=== PATIENT | male | born 1930 | race Caucasian/White ===

== ENCOUNTER 2017-05-28 03:31 | Outpatient (CLI) | payer MEDICARE ==
[~2017-05-28 03:31] MED LIST: ATOR10TA87 PO; COU5T PO; CYA500T PO; DET2LAC PO; DIGO250T PO; DILT240C PO; FOLI-43 PO; FURO-149 PO; GLIP5TAB13 PO; HYDR12.5 PO; HYT1T PO; IRBE75TA30 PO; LANS30CA37 PO; MULT-785 PO; NIAC500T5 PO; SERT25TA PO; VITC500T PO; [UNRECOGNIZED DRUG - CODE] SQ; [UNRECOGNIZED DRUG - OTHER] NS
== END 2017-05-28 23:59 | disposition home or self-care (01) ==
LOC: DIABETIC 03:31
PROVIDERS: ATTEND Specialist
DX: E11.9 Type 2 diabetes mellitus without complications (principal); F17.200 Nicotine dependence, unspecified, uncomplicated; I11.0 Hypertensive heart disease with heart failure; I50.9 Heart failure, unspecified
CPT/HCPCS: G0108

== ENCOUNTER 2018-01-18 15:12 | Inpatient (IN) | payer MEDICARE, OTHER ==
[~2018-01-18] VITALS: Ht 167.6 cm; Wt 83.0 kg
[~2018-01-18 15:12] MED LIST changes: +COU4T PO; -COU5T PO; -DIGO250T PO; -FOLI-43 PO; +FOLI1TAB16 PO; -FURO-149 PO; +FURO-150 PO; +GLIP2.5T3 PO; -GLIP5TAB13 PO; -HYDR12.5 PO; -LANS30CA37 PO; +METO50TA7 PO; -MULT-785 PO; -SERT25TA PO; +SERT50TA PO; +[UNRECOGNIZED DRUG - CODE] IM; -[UNRECOGNIZED DRUG - CODE] SQ
[2018-01-18 15:33] LABS: BASOPHILS % (AUTO) 0 % (0-1); EOSINOPHILS % (AUTO) 0.2 % (0-6); HEMATOCRIT 30.4 % (42.0-52.0); LYMPHOCYTES # (AUTO) 0.2 X10'3 (1.1-4.8); LYMPHOCYTES % (AUTO) 5.4 % (21-51); MEAN CORPUSCULAR HEMOGLOBIN 31.4 PG (27.0-31.0); MEAN CORPUSCULAR VOLUME 95.4 FL (78-98); MEAN PLATELET VOLUME 8.4 FL (7.4-10.4); MONOCYTES # (AUTO) 0.2 X10'3 (0-0.9); MONOCYTES % (AUTO) 4.5 % (2-12); NEUTROPHILS # (AUTO) 3.8 X10'3 (1.8-7.7); NEUTROPHILS % (AUTO) 89.9 % (42-75); PLATELET COUNT 54 X10'3 (140-440); RED BLOOD COUNT 3.18 X10'6 (4.70-6.10); RED CELL DISTRIBUTION WIDTH 16.3 % (11.5-14.5); WHITE BLOOD COUNT 4.2 X10'3 (4.5-11.0)
[2018-01-18 15:42] LABS: INR 2.9 INR; PARTIAL THROMBOPLASTIN TIME 38 SECONDS (22-32)
[2018-01-18 15:47] LABS: ALANINE AMINOTRANSFERASE 32 U/L (12-78); ALBUMIN 2.8 G/DL (3.4-5.0); ALKALINE PHOSPHATASE 104 IU/L (46-116); ANION GAP 11 (8-16); ASPARTATE AMINO TRANSFERASE 30 U/L (10-37); BILIRUBIN,TOTAL 0.8 MG/DL (0.1-1.0); BLOOD UREA NITROGEN 30 MG/DL (7-18); BUN/CREATININE RATIO 18.3 (5.4-32.0); CALCIUM 8.6 MG/DL (8.5-10.1); CHLORIDE 95 MMOL/L (99-107); CREATININE 1.64 MG/DL (0.60-1.10); GLUCOSE 214 MG/DL (70-104); POTASSIUM 4.5 MMOL/L (3.5-5.1); SODIUM 129 MMOL/L (135-145); TOTAL CARBON DIOXIDE 23.5 MMOL/L (24-32); TOTAL PROTEIN 5.7 G/DL (6.4-8.2); eGFR 40 ML/MIN
[2018-01-18 15:53] LABS: ANISOCYTOSIS 1+; PLATELET ESTIMATE DECREASED; TOTAL CELLS COUNTED 100
[2018-01-18 15:54] LABS: POLYCHROMASIA FEW; TOXIC GRANULATION 1+
[2018-01-18 15:55] LABS: ACANTHOCYTES 1+; ELLIPTOCYTES 1+; SCHISTOCYTES FEW
[2018-01-18] MEDS ORDERED: magnesium hydroxide 30ml (MOM) UD suspension PO PRN (16:25)
[2018-01-18] MEDS ORDERED: acetaminophen 325mg tablet PO PRN (16:25)
[2018-01-18] MEDS ORDERED: ondansetron/PF 4mg/2ml inj IV PRN (16:25)
[2018-01-18] MEDS ORDERED: mag hydrox/Alum hydrox/simeth 30ml oral suspension PO PRN (16:25)
[2018-01-18] MEDS: levoFLOXACIN-Levaquin 500mg/D5 100 ML IV SCH (17:33)
[2018-01-18] MEDS ORDERED: phytonadione inj. 5 MG in normal saline 100ml IV soln 99.5 ML IV ONE (17:45)
[2018-01-18] MEDS ORDERED: morphine 10mg/ml inj. IV ONE (18:40)
[2018-01-18 19:00] VITALS: BP 105/62
[2018-01-18 19:24] LABS: CLARITY,URINE CLEAR (Clear); COLOR,URINE YELLOW (Yellow); GLUCOSE, URINE NEGATIVE (Neg); KETONES,URINE TRACE mg/dl (Neg); LEUKOCYTE ESTERASE ,URINE NEGATIVE (Neg); NITRITES, URINE NEGATIVE (Neg); OCCULT BLOOD,URINE NEGATIVE (Neg); PH,URINE 5.5 (4.8-8.0); PROTEIN,URINE NEGATIVE (Neg); UROBILINOGEN,URINE 0.2 E.U/dL (0.2-1.0)
[2018-01-18 19:27] LABS: UA COLLECTION TYPE FOLEY CATH
[2018-01-18 20:00] VITALS: BP 107/62
[2018-01-18] MEDS ORDERED: ipratropium/albuterol 3ml nebule NEB PRN (20:00)
[2018-01-18] MEDS ORDERED: glucagon, human recombinant 1mg kit SUBCUT PRN (20:15)
[2018-01-18] MEDS ORDERED: dextrose ORAL solution 15 GM/59 ML bottle PO PRN ×2 (20:15)
[2018-01-18] MEDS ORDERED: dextrose 50%-water 50ml dispensing syringe IV PRN ×2 (20:15)
[2018-01-18] MEDS ORDERED: MESSAGE TO PHARMACY PO ONE (20:15)
[2018-01-18 21:00] VITALS: BP 102/61
[2018-01-18] MEDS: Terazosin 1mg capsule PO SCH (21:00)
[2018-01-18] MEDS: insulin glargine (Lantus) pen - multi-dose SQ SCH (21:00)
[2018-01-18] MEDS: oxybutynin 5mg tablet PO SCH (21:00)
[2018-01-18] MEDS: niacin 500mg ER (Niaspan) tablet PO SCH (21:41)
[2018-01-18] MEDS: temazepam 15mg capsule PO PRN (21:41)
[2018-01-18] MEDS: atorvastatin 10mg tablet PO SCH (21:42)
[2018-01-18 22:00] VITALS: BP 90/57
[2018-01-18 23:00] VITALS: BP 93/56
[2018-01-19] VITALS (29 sets, daily range): BP systolic 81–138; BP diastolic 49–84
[2018-01-19 05:11] LABS: INR 1.9 INR; PARTIAL THROMBOPLASTIN TIME 37 SECONDS (22-32); PROTHROMBIN TIME 19.4 SECONDS (9.0-12.0)
[2018-01-19 05:14] LABS: BASOPHILS % (AUTO) 0.7 % (0-1); EOSINOPHILS % (AUTO) 1.1 % (0-6); HEMATOCRIT 27.5 % (42.0-52.0); HEMOGLOBIN 9.2 g/dl (14.0-17.9); LYMPHOCYTES # (AUTO) 0.4 X10'3 (1.1-4.8); LYMPHOCYTES % (AUTO) 9.7 % (21-51); MEAN CORPUSCULAR HEMOGLOBIN 31.5 PG (27.0-31.0); MEAN CORPUSCULAR HGB CONC 33.5 % (33.0-36.5); MEAN CORPUSCULAR VOLUME 94.2 FL (78-98); MEAN PLATELET VOLUME 7.9 FL (7.4-10.4); MONOCYTES # (AUTO) 0.3 X10'3 (0-0.9); MONOCYTES % (AUTO) 8.3 % (2-12); NEUTROPHILS # (AUTO) 3.2 X10'3 (1.8-7.7); NEUTROPHILS % (AUTO) 80.2 % (42-75); RED BLOOD COUNT 2.92 X10'6 (4.70-6.10); RED CELL DISTRIBUTION WIDTH 16.3 % (11.5-14.5); WHITE BLOOD COUNT 3.9 X10'3 (4.5-11.0)
[2018-01-19 05:19] LABS: ALANINE AMINOTRANSFERASE 27 U/L (12-78); ALBUMIN 2.5 G/DL (3.4-5.0); ALBUMIN/GLOBULIN RATIO 0.9 (1.1-1.5); ALKALINE PHOSPHATASE 89 IU/L (46-116); ANION GAP 8 (8-16); ASPARTATE AMINO TRANSFERASE 25 U/L (10-37); BILIRUBIN,TOTAL 0.8 MG/DL (0.1-1.0); BLOOD UREA NITROGEN 29 MG/DL (7-18); BUN/CREATININE RATIO 18.8 (5.4-32.0); CALCIUM 8.5 MG/DL (8.5-10.1); CHLORIDE 98 MMOL/L (99-107); CREATININE 1.54 MG/DL (0.60-1.10); GLUCOSE 68 MG/DL (70-104); POTASSIUM 4.1 MMOL/L (3.5-5.1); SODIUM 131 MMOL/L (135-145); TOTAL CARBON DIOXIDE 25.3 MMOL/L (24-32); TOTAL PROTEIN 5.2 G/DL (6.4-8.2); eGFR 43 ML/MIN
[2018-01-19 05:26] LABS: PLATELET COUNT 43 X10'3 (140-440)
[2018-01-19 05:47] LABS: HEMOGLOBIN A1C 6.3 % (4.5-6.2)
[2018-01-19] MEDS ORDERED: morphine 2 MG/ML inj. syringe IV ONE (07:05)
[2018-01-19] MEDS: furosemide 20 MG/2 ML vial IV SCH ×3 (08:14→16:00)
[2018-01-19] MEDS: diltiazem CD 120mg capsule (once-daily) PO SCH (08:14)
[2018-01-19] MEDS: levoFLOXACIN-Levaquin 500mg/D5 100 ML IV SCH (08:14)
[2018-01-19] MEDS: cyanocobalamin 500mcg tablet PO SCH (08:14)
[2018-01-19] MEDS: losartan 25mg tablet PO SCH (08:15)
[2018-01-19] MEDS: lactobacillus rhamnosus 10,000 MMU CELLS/CAPSULE PO SCH ×2 (08:15→20:22)
[2018-01-19] MEDS: metoprolol succinate 25mg (24-HOUR) SR. Tablet PO SCH (08:15)
[2018-01-19] MEDS: sertraline 50mg tablet PO SCH (08:15)
[2018-01-19] MEDS: ascorbic acid 500mg tablet PO SCH ×2 (08:15→20:22)
[2018-01-19] MEDS: folic acid 1mg tablet PO SCH (08:16)
[2018-01-19] MEDS: oxybutynin 5mg tablet PO SCH ×2 (08:16→20:23)
[2018-01-19 08:19] LABS: BASOPHILS % (AUTO) 0 % (0-1); EOSINOPHILS # (AUTO) 0.1 X10'3 (0-0.9); EOSINOPHILS % (AUTO) 1.4 % (0-6); HEMATOCRIT 28.4 % (42.0-52.0); HEMOGLOBIN 9.5 g/dl (14.0-17.9); LYMPHOCYTES # (AUTO) 0.3 X10'3 (1.1-4.8); LYMPHOCYTES % (AUTO) 7.7 % (21-51); MEAN CORPUSCULAR HEMOGLOBIN 31.6 PG (27.0-31.0); MEAN CORPUSCULAR HGB CONC 33.6 % (33.0-36.5); MEAN CORPUSCULAR VOLUME 94.2 FL (78-98); MEAN PLATELET VOLUME 8.7 FL (7.4-10.4); MONOCYTES # (AUTO) 0.4 X10'3 (0-0.9); MONOCYTES % (AUTO) 9.6 % (2-12); NEUTROPHILS # (AUTO) 3.1 X10'3 (1.8-7.7); NEUTROPHILS % (AUTO) 81.3 % (42-75); PLATELET COUNT 65 X10'3 (140-440); RED BLOOD COUNT 3.01 X10'6 (4.70-6.10); RED CELL DISTRIBUTION WIDTH 16.2 % (11.5-14.5); WHITE BLOOD COUNT 3.9 X10'3 (4.5-11.0)
[2018-01-19] MEDS ORDERED: LIDOcaine 1%/PF 5ML 10 MG/ML VIAL ONE (08:50)
[2018-01-19] MEDS ORDERED: LIDOcaine 1%/PF 5ML 10 MG/ML VIAL SQ ONE (09:20)
[2018-01-19] MEDS ORDERED: fentaNYL/PF 50MCG/1 ML 2ML syringe ONE (09:27)
[2018-01-19] MEDS ORDERED: fentaNYL/PF 50MCG/1 ML 2ML syringe IV PRN (09:30)
[2018-01-19] MEDS ORDERED: normal saline 1000ml 1,000 ML IV SCH (12:20)
[2018-01-19 13:24] LABS: AMYLASE,BODY FLUID 53 U/L; GLUCOSE,BODY FLUID 88 MG/DL; LDH,BODY FLUID 155 U/L
[2018-01-19 13:50] LABS: BFAPPEAR BLOODY
[2018-01-19 13:51] LABS: BF RBC COUNT 34500 /CU MM; BF WBC COUNT 3620 /CU MM (0-1000); BFCOLOR RED; BFVOLUME 60 ML; EOSINOPHILS,BODY FLUID 1 %; LYMPHOCYTES,BODY FLUID 8 %; MONOCYTES,BODY FLUID 1 %; NEUTROPHILS,BODY FLUID 90 %
[2018-01-19 13:54] LABS: BF MESOTHELIAL CELLS FEW
[2018-01-19 13:55] LABS: OTHER CELLS,BODY FLUID MACROPHAGES
[2018-01-19] MEDS: insulin Lispro (HumaLOG) vial - multi-dose SQ SCH (14:04)
[2018-01-19] MEDS: temazepam 15mg capsule PO PRN (20:22)
[2018-01-19] MEDS: atorvastatin 10mg tablet PO SCH (20:22)
[2018-01-19] MEDS: Terazosin 1mg capsule PO SCH (20:23)
[2018-01-19] MEDS: niacin 500mg ER (Niaspan) tablet PO SCH (20:24)
[2018-01-19] MEDS: insulin glargine (Lantus) pen - multi-dose SQ SCH (21:00)
[2018-01-20] VITALS (24 sets, daily range): BP systolic 87–120; BP diastolic 50–73
[2018-01-20] MEDS ORDERED: benzocaine/menthol oral lozeng 1 EACH BOX MM PRN
[2018-01-20 04:38] LABS: BASOPHILS % (AUTO) 0.2 % (0-1); EOSINOPHILS # (AUTO) 0.1 X10'3 (0-0.9); EOSINOPHILS % (AUTO) 3.7 % (0-6); HEMATOCRIT 26.6 % (42.0-52.0); HEMOGLOBIN 8.8 g/dl (14.0-17.9); LYMPHOCYTES # (AUTO) 0.4 X10'3 (1.1-4.8); MEAN CORPUSCULAR HEMOGLOBIN 31.3 PG (27.0-31.0); MEAN CORPUSCULAR HGB CONC 33.1 % (33.0-36.5); MEAN CORPUSCULAR VOLUME 94.3 FL (78-98); MEAN PLATELET VOLUME 8.1 FL (7.4-10.4); MONOCYTES # (AUTO) 0.3 X10'3 (0-0.9); NEUTROPHILS # (AUTO) 2.9 X10'3 (1.8-7.7); NEUTROPHILS % (AUTO) 77.1 % (42-75); PLATELET COUNT 66 X10'3 (140-440); RED BLOOD COUNT 2.82 X10'6 (4.70-6.10); RED CELL DISTRIBUTION WIDTH 17.1 % (11.5-14.5); WHITE BLOOD COUNT 3.8 X10'3 (4.5-11.0)
[2018-01-20 04:50] LABS: INR 1.5 INR; PARTIAL THROMBOPLASTIN TIME 37 SECONDS (22-32); PROTHROMBIN TIME 15.2 SECONDS (9.0-12.0)
[2018-01-20 04:53] LABS: ALANINE AMINOTRANSFERASE 21 U/L (12-78); ALBUMIN 2.2 G/DL (3.4-5.0); ALBUMIN/GLOBULIN RATIO 0.8 (1.1-1.5); ALKALINE PHOSPHATASE 82 IU/L (46-116); ANION GAP 4 (8-16); ASPARTATE AMINO TRANSFERASE 20 U/L (10-37); BILIRUBIN,TOTAL 0.8 MG/DL (0.1-1.0); BLOOD UREA NITROGEN 32 MG/DL (7-18); BUN/CREATININE RATIO 18.9 (5.4-32.0); CALCIUM 8.1 MG/DL (8.5-10.1); CHLORIDE 98 MMOL/L (99-107); CREATININE 1.69 MG/DL (0.60-1.10); GLUCOSE 116 MG/DL (70-104); POTASSIUM 4.2 MMOL/L (3.5-5.1); SODIUM 127 MMOL/L (135-145); TOTAL CARBON DIOXIDE 24.9 MMOL/L (24-32); TOTAL PROTEIN 4.8 G/DL (6.4-8.2); eGFR 39 ML/MIN
[2018-01-20] MEDS: cyanocobalamin 500mcg tablet PO SCH (07:37)
[2018-01-20] MEDS: furosemide 20 MG/2 ML vial IV SCH ×4 (07:37→23:56)
[2018-01-20] MEDS: levoFLOXACIN-Levaquin 500mg/D5 100 ML IV SCH (07:37)
[2018-01-20] MEDS: metoprolol succinate 25mg (24-HOUR) SR. Tablet PO SCH (07:38)
[2018-01-20] MEDS: diltiazem CD 120mg capsule (once-daily) PO SCH (07:38)
[2018-01-20] MEDS: folic acid 1mg tablet PO SCH (07:38)
[2018-01-20] MEDS: ascorbic acid 500mg tablet PO SCH (07:38)
[2018-01-20] MEDS: oxybutynin 5mg tablet PO SCH ×2 (07:38→20:43)
[2018-01-20] MEDS: sertraline 50mg tablet PO SCH (07:38)
[2018-01-20] MEDS: lactobacillus rhamnosus 10,000 MMU CELLS/CAPSULE PO SCH ×2 (07:38→20:42)
[2018-01-20] MEDS: losartan 25mg tablet PO SCH (08:00)
[2018-01-20] MEDS: insulin Lispro (HumaLOG) vial - multi-dose SQ SCH (13:32)
[2018-01-20] MEDS: Terazosin 1mg capsule PO SCH (20:42)
[2018-01-20] MEDS: niacin 500mg ER (Niaspan) tablet PO SCH (20:43)
[2018-01-20] MEDS: atorvastatin 10mg tablet PO SCH (20:43)
[2018-01-20] MEDS: insulin glargine (Lantus) pen - multi-dose SQ SCH (20:55)
[2018-01-21] VITALS (13 sets, daily range): BP systolic 87–136; BP diastolic 47–78
[2018-01-21] MEDS: temazepam 15mg capsule PO PRN ×2 (01:03→20:09)
[2018-01-21 05:16] LABS: BASOPHILS % (AUTO) 0.2 % (0-1); EOSINOPHILS # (AUTO) 0.2 X10'3 (0-0.9); EOSINOPHILS % (AUTO) 3.9 % (0-6); HEMATOCRIT 27.5 % (42.0-52.0); HEMOGLOBIN 9.1 g/dl (14.0-17.9); LYMPHOCYTES # (AUTO) 0.5 X10'3 (1.1-4.8); LYMPHOCYTES % (AUTO) 13.3 % (21-51); MEAN CORPUSCULAR HEMOGLOBIN 31.1 PG (27.0-31.0); MEAN CORPUSCULAR HGB CONC 33.1 % (33.0-36.5); MEAN CORPUSCULAR VOLUME 93.9 FL (78-98); MEAN PLATELET VOLUME 8.8 FL (7.4-10.4); MONOCYTES # (AUTO) 0.3 X10'3 (0-0.9); MONOCYTES % (AUTO) 6.6 % (2-12); PLATELET COUNT 73 X10'3 (140-440); RED BLOOD COUNT 2.93 X10'6 (4.70-6.10); RED CELL DISTRIBUTION WIDTH 17.5 % (11.5-14.5); WHITE BLOOD COUNT 3.9 X10'3 (4.5-11.0)
[2018-01-21 05:20] LABS: INR 1.5 INR; PROTHROMBIN TIME 15.2 SECONDS (9.0-12.0)
[2018-01-21 05:36] LABS: ALANINE AMINOTRANSFERASE 17 U/L (12-78); ALBUMIN 2.3 G/DL (3.4-5.0); ALBUMIN/GLOBULIN RATIO 0.9 (1.1-1.5); ALKALINE PHOSPHATASE 89 IU/L (46-116); ANION GAP 9 (8-16); ASPARTATE AMINO TRANSFERASE 21 U/L (10-37); BILIRUBIN,TOTAL 0.9 MG/DL (0.1-1.0); BLOOD UREA NITROGEN 32 MG/DL (7-18); BUN/CREATININE RATIO 18.7 (5.4-32.0); CALCIUM 8.4 MG/DL (8.5-10.1); CHLORIDE 97 MMOL/L (99-107); CREATININE 1.71 MG/DL (0.60-1.10); GLUCOSE 112 MG/DL (70-104); POTASSIUM 3.8 MMOL/L (3.5-5.1); SODIUM 130 MMOL/L (135-145); TOTAL CARBON DIOXIDE 23.6 MMOL/L (24-32); eGFR 38 ML/MIN
[2018-01-21] MEDS: lactobacillus rhamnosus 10,000 MMU CELLS/CAPSULE PO SCH ×2 (08:43→20:09)
[2018-01-21] MEDS: cyanocobalamin 500mcg tablet PO SCH (08:43)
[2018-01-21] MEDS: sertraline 50mg tablet PO SCH (08:44)
[2018-01-21] MEDS: ascorbic acid 500mg tablet PO SCH (08:44)
[2018-01-21] MEDS: folic acid 1mg tablet PO SCH (08:44)
[2018-01-21] MEDS: oxybutynin 5mg tablet PO SCH ×2 (08:44→20:11)
[2018-01-21] MEDS: losartan 25mg tablet PO SCH (08:45)
[2018-01-21] MEDS: diltiazem CD 120mg capsule (once-daily) PO SCH (08:45)
[2018-01-21] MEDS: levoFLOXACIN-Levaquin 500mg/D5 100 ML IV SCH (08:46)
[2018-01-21] MEDS: furosemide 20MG tablet PO SCH (09:35)
[2018-01-21] MEDS: metoprolol succinate 25mg (24-HOUR) SR. Tablet PO SCH (09:35)
[2018-01-21] MEDS: niacin 500mg ER (Niaspan) tablet PO SCH (20:09)
[2018-01-21] MEDS: atorvastatin 10mg tablet PO SCH (20:11)
[2018-01-21] MEDS: Terazosin 1mg capsule PO SCH (20:12)
[2018-01-21] MEDS: insulin glargine (Lantus) pen - multi-dose SQ SCH (20:32)
[2018-01-21] MEDS ORDERED: warfarin 4mg tablet PO ONE (21:00)
[2018-01-22 03:00] VITALS: BP 105/54
[2018-01-22 05:34] LABS: BASOPHILS % (AUTO) 0.1 % (0-1); EOSINOPHILS # (AUTO) 0.2 X10'3 (0-0.9); EOSINOPHILS % (AUTO) 3.9 % (0-6); HEMATOCRIT 26.7 % (42.0-52.0); HEMOGLOBIN 8.9 g/dl (14.0-17.9); LYMPHOCYTES # (AUTO) 0.4 X10'3 (1.1-4.8); LYMPHOCYTES % (AUTO) 10.3 % (21-51); MEAN CORPUSCULAR HEMOGLOBIN 30.9 PG (27.0-31.0); MEAN CORPUSCULAR HGB CONC 33.3 % (33.0-36.5); MEAN CORPUSCULAR VOLUME 92.9 FL (78-98); MEAN PLATELET VOLUME 8.7 FL (7.4-10.4); MONOCYTES # (AUTO) 0.3 X10'3 (0-0.9); MONOCYTES % (AUTO) 7.4 % (2-12); NEUTROPHILS # (AUTO) 3.4 X10'3 (1.8-7.7); NEUTROPHILS % (AUTO) 78.3 % (42-75); PLATELET COUNT 65 X10'3 (140-440); RED BLOOD COUNT 2.87 X10'6 (4.70-6.10); WHITE BLOOD COUNT 4.4 X10'3 (4.5-11.0)
[2018-01-22 05:44] LABS: INR 1.5 INR; PROTHROMBIN TIME 15.1 SECONDS (9.0-12.0)
[2018-01-22 05:46] LABS: ALANINE AMINOTRANSFERASE 23 U/L (12-78); ALBUMIN 2.2 G/DL (3.4-5.0); ALBUMIN/GLOBULIN RATIO 0.8 (1.1-1.5); ALKALINE PHOSPHATASE 88 IU/L (46-116); ANION GAP 9 (8-16); ASPARTATE AMINO TRANSFERASE 21 U/L (10-37); BILIRUBIN,TOTAL 0.7 MG/DL (0.1-1.0); BLOOD UREA NITROGEN 38 MG/DL (7-18); BUN/CREATININE RATIO 22.9 (5.4-32.0); CALCIUM 8.4 MG/DL (8.5-10.1); CHLORIDE 97 MMOL/L (99-107); CREATININE 1.66 MG/DL (0.60-1.10); GLUCOSE 102 MG/DL (70-104); POTASSIUM 3.8 MMOL/L (3.5-5.1); SODIUM 129 MMOL/L (135-145); TOTAL CARBON DIOXIDE 22.7 MMOL/L (24-32); TOTAL PROTEIN 4.9 G/DL (6.4-8.2); eGFR 39 ML/MIN
[2018-01-22 06:00] VITALS: BP 97/57
[2018-01-22 07:43] LABS: ANISOCYTOSIS 1+; ELLIPTOCYTES FEW; PLATELET ESTIMATE DECREASED; POIKILOCYTOSIS 1+; TEAR DROP CELLS FEW
[2018-01-22 07:47] LABS: ACANTHOCYTES FEW
[2018-01-22 07:48] LABS: SCHISTOCYTES FEW
[2018-01-22 07:49] LABS: SPHEROCYTES FEW
[2018-01-22] MEDS: metoprolol succinate 25mg (24-HOUR) SR. Tablet PO SCH (08:00)
[2018-01-22] MEDS: losartan 25mg tablet PO SCH (08:00)
[2018-01-22] MEDS: furosemide 20MG tablet PO SCH (08:00)
[2018-01-22] MEDS: diltiazem CD 120mg capsule (once-daily) PO SCH (09:04)
[2018-01-22] MEDS: folic acid 1mg tablet PO SCH (09:05)
[2018-01-22] MEDS: oxybutynin 5mg tablet PO SCH ×2 (09:05→20:37)
[2018-01-22] MEDS: ascorbic acid 500mg tablet PO SCH (09:05)
[2018-01-22] MEDS: lactobacillus rhamnosus 10,000 MMU CELLS/CAPSULE PO SCH ×2 (09:05→20:37)
[2018-01-22] MEDS: sertraline 50mg tablet PO SCH (09:05)
[2018-01-22] MEDS: cyanocobalamin 500mcg tablet PO SCH (09:05)
[2018-01-22 11:00] VITALS: BP 112/58
[2018-01-22 15:00] VITALS: BP 120/59
[2018-01-22 19:00] VITALS: BP 158/84
[2018-01-22] MEDS: atorvastatin 10mg tablet PO SCH (20:35)
[2018-01-22] MEDS: terazosin 5mg capsule PO SCH (20:35)
[2018-01-22] MEDS: niacin 500mg ER (Niaspan) tablet PO SCH (20:37)
[2018-01-22] MEDS: temazepam 15mg capsule PO PRN (20:37)
[2018-01-22] MEDS: insulin glargine (Lantus) pen - multi-dose SQ SCH (20:45)
[2018-01-22] MEDS ORDERED: warfarin 4mg tablet PO ONE (21:00)
[2018-01-22 23:00] VITALS: BP 125/63
[2018-01-23 03:00] VITALS: BP 126/73
[2018-01-23 05:36] LABS: BASOPHILS % (AUTO) 0.1 % (0-1); EOSINOPHILS # (AUTO) 0.1 X10'3 (0-0.9); EOSINOPHILS % (AUTO) 2.9 % (0-6); HEMATOCRIT 26.6 % (42.0-52.0); HEMOGLOBIN 8.9 g/dl (14.0-17.9); LYMPHOCYTES # (AUTO) 0.4 X10'3 (1.1-4.8); LYMPHOCYTES % (AUTO) 8.1 % (21-51); MEAN CORPUSCULAR HEMOGLOBIN 30.9 PG (27.0-31.0); MEAN CORPUSCULAR HGB CONC 33.3 % (33.0-36.5); MEAN CORPUSCULAR VOLUME 92.9 FL (78-98); MEAN PLATELET VOLUME 8.2 FL (7.4-10.4); MONOCYTES # (AUTO) 0.3 X10'3 (0-0.9); MONOCYTES % (AUTO) 6.5 % (2-12); NEUTROPHILS # (AUTO) 4.3 X10'3 (1.8-7.7); NEUTROPHILS % (AUTO) 82.4 % (42-75); PLATELET COUNT 62 X10'3 (140-440); RED BLOOD COUNT 2.87 X10'6 (4.70-6.10); RED CELL DISTRIBUTION WIDTH 17.4 % (11.5-14.5); WHITE BLOOD COUNT 5.2 X10'3 (4.5-11.0)
[2018-01-23 05:50] LABS: INR 1.6 INR; PROTHROMBIN TIME 16.4 SECONDS (9.0-12.0)
[2018-01-23 06:01] LABS: ALANINE AMINOTRANSFERASE 23 U/L (12-78); ALBUMIN 2.3 G/DL (3.4-5.0); ALBUMIN/GLOBULIN RATIO 0.8 (1.1-1.5); ALKALINE PHOSPHATASE 109 IU/L (46-116); ANION GAP 9 (8-16); ASPARTATE AMINO TRANSFERASE 27 U/L (10-37); BILIRUBIN,TOTAL 0.7 MG/DL (0.1-1.0); BLOOD UREA NITROGEN 39 MG/DL (7-18); BUN/CREATININE RATIO 21.5 (5.4-32.0); CALCIUM 8.7 MG/DL (8.5-10.1); CHLORIDE 98 MMOL/L (99-107); CREATININE 1.81 MG/DL (0.60-1.10); GLUCOSE 128 MG/DL (70-104); POTASSIUM 4.5 MMOL/L (3.5-5.1); SODIUM 131 MMOL/L (135-145); TOTAL CARBON DIOXIDE 23.8 MMOL/L (24-32); TOTAL PROTEIN 5.3 G/DL (6.4-8.2); eGFR 36 ML/MIN
[2018-01-23 06:33] LABS: PLATELET ESTIMATE DECREASED
[2018-01-23 06:35] LABS: ACANTHOCYTES 1+; ANISOCYTOSIS 1+; ELLIPTOCYTES 1+
[2018-01-23 06:36] LABS: SCHISTOCYTES FEW
[2018-01-23 07:19] VITALS: BP_SYST 134; BP_SYST 60; BP_DIAS 63; BP_DIAS 73
[2018-01-23] MEDS: lactobacillus rhamnosus 10,000 MMU CELLS/CAPSULE PO SCH ×2 (08:00→19:52)
[2018-01-23] MEDS: cyanocobalamin 500mcg tablet PO SCH (08:00)
[2018-01-23] MEDS: ascorbic acid 500mg tablet PO SCH (09:35)
[2018-01-23] MEDS: folic acid 1mg tablet PO SCH (09:36)
[2018-01-23] MEDS: losartan 25mg tablet PO SCH (09:37)
[2018-01-23] MEDS: diltiazem CD 120mg capsule (once-daily) PO SCH (09:37)
[2018-01-23] MEDS: metoprolol succinate 25mg (24-HOUR) SR. Tablet PO SCH (09:37)
[2018-01-23] MEDS: furosemide 20MG tablet PO SCH (09:37)
[2018-01-23] MEDS: sertraline 50mg tablet PO SCH (09:38)
[2018-01-23] MEDS: oxybutynin 5mg tablet PO SCH ×2 (09:38→19:51)
[2018-01-23 11:00] VITALS: BP 126/68
[2018-01-23 15:00] VITALS: BP 109/61
[2018-01-23 19:00] VITALS: BP 143/64
[2018-01-23] MEDS: terazosin 5mg capsule PO SCH (19:51)
[2018-01-23] MEDS: niacin 500mg ER (Niaspan) tablet PO SCH (19:52)
[2018-01-23] MEDS: atorvastatin 10mg tablet PO SCH (19:52)
[2018-01-23] MEDS: temazepam 15mg capsule PO PRN (19:59)
[2018-01-23] MEDS ORDERED: warfarin 5mg tablet PO ONE (21:00)
[2018-01-23] MEDS: insulin glargine (Lantus) pen - multi-dose SQ SCH (21:00)
[2018-01-23 23:00] VITALS: BP 124/40
[2018-01-24] VITALS (7 sets, daily range): BP systolic 107–136; BP diastolic 29–53
[2018-01-24 05:53] LABS: INR 1.7 INR; PROTHROMBIN TIME 17.2 SECONDS (9.0-12.0)
[2018-01-24] MEDS: lactobacillus rhamnosus 10,000 MMU CELLS/CAPSULE PO SCH ×2 (07:49→19:45)
[2018-01-24] MEDS: losartan 25mg tablet PO SCH (07:50)
[2018-01-24] MEDS: sertraline 50mg tablet PO SCH (07:50)
[2018-01-24] MEDS: ascorbic acid 500mg tablet PO SCH (07:50)
[2018-01-24] MEDS: diltiazem CD 120mg capsule (once-daily) PO SCH (07:50)
[2018-01-24] MEDS: cyanocobalamin 500mcg tablet PO SCH (07:50)
[2018-01-24] MEDS: metoprolol succinate 25mg (24-HOUR) SR. Tablet PO SCH (07:50)
[2018-01-24] MEDS: folic acid 1mg tablet PO SCH (07:51)
[2018-01-24] MEDS: oxybutynin 5mg tablet PO SCH ×2 (07:51→19:45)
[2018-01-24] MEDS: furosemide 20MG tablet PO SCH (07:51)
[2018-01-24] MEDS: insulin Lispro (HumaLOG) vial - multi-dose SQ SCH ×3 (08:57→18:40)
[2018-01-24] MEDS: niacin 500mg ER (Niaspan) tablet PO SCH (19:45)
[2018-01-24] MEDS: temazepam 15mg capsule PO PRN (19:45)
[2018-01-24] MEDS: terazosin 5mg capsule PO SCH (19:45)
[2018-01-24] MEDS: atorvastatin 10mg tablet PO SCH (19:45)
[2018-01-24] MEDS ORDERED: warfarin 3mg tablet PO ONE (21:00)
[2018-01-24] MEDS: insulin glargine (Lantus) pen - multi-dose SQ SCH (22:10)
[2018-01-25] VITALS (7 sets, daily range): BP systolic 109–146; BP diastolic 30–75
[2018-01-25 05:37] LABS: INR 1.9 INR; PROTHROMBIN TIME 19.3 SECONDS (9.0-12.0)
[2018-01-25] MEDS: diltiazem CD 120mg capsule (once-daily) PO SCH (07:59)
[2018-01-25] MEDS: sertraline 50mg tablet PO SCH (07:59)
[2018-01-25] MEDS: metoprolol succinate 25mg (24-HOUR) SR. Tablet PO SCH (07:59)
[2018-01-25] MEDS: oxybutynin 5mg tablet PO SCH ×2 (08:00→20:42)
[2018-01-25] MEDS: ascorbic acid 500mg tablet PO SCH (08:00)
[2018-01-25] MEDS: furosemide 20MG tablet PO SCH (08:00)
[2018-01-25] MEDS: lactobacillus rhamnosus 10,000 MMU CELLS/CAPSULE PO SCH ×2 (08:00→20:42)
[2018-01-25] MEDS: folic acid 1mg tablet PO SCH (08:00)
[2018-01-25] MEDS: cyanocobalamin 500mcg tablet PO SCH (08:00)
[2018-01-25] MEDS: losartan 25mg tablet PO SCH (08:00)
[2018-01-25] MEDS: insulin Lispro (HumaLOG) vial - multi-dose SQ SCH ×3 (09:29→19:17)
[2018-01-25 14:39] LABS: ALBUMIN 2.2 G/DL (3.4-5.0); TOTAL PROTEIN 5.1 G/DL (6.4-8.2)
[2018-01-25 15:33] LABS: ALBUMIN,BODY FLUID 1.1 G/DL; TOTAL PROTEIN,BODY FLUID 2.1 G/DL
[2018-01-25 16:21] LABS: BASOPHILS % (AUTO) 0.6 % (0-1); EOSINOPHILS # (AUTO) 0.1 X10'3 (0-0.9); HEMATOCRIT 25.8 % (42.0-52.0); HEMOGLOBIN 8.6 g/dl (14.0-17.9); LYMPHOCYTES # (AUTO) 0.3 X10'3 (1.1-4.8); MEAN CORPUSCULAR HEMOGLOBIN 30.9 PG (27.0-31.0); MEAN CORPUSCULAR HGB CONC 33.2 % (33.0-36.5); MEAN PLATELET VOLUME 8.5 FL (7.4-10.4); MONOCYTES # (AUTO) 0.3 X10'3 (0-0.9); MONOCYTES % (AUTO) 5.4 % (2-12); NEUTROPHILS # (AUTO) 4.2 X10'3 (1.8-7.7); PLATELET COUNT 70 X10'3 (140-440); RED BLOOD COUNT 2.77 X10'6 (4.70-6.10); RED CELL DISTRIBUTION WIDTH 16.9 % (11.5-14.5); WHITE BLOOD COUNT 4.9 X10'3 (4.5-11.0)
[2018-01-25] MEDS: terazosin 5mg capsule PO SCH (20:41)
[2018-01-25] MEDS: niacin 500mg ER (Niaspan) tablet PO SCH (20:42)
[2018-01-25] MEDS: atorvastatin 10mg tablet PO SCH (20:42)
[2018-01-25] MEDS: insulin glargine (Lantus) pen - multi-dose SQ SCH (20:58)
[2018-01-25] MEDS: temazepam 15mg capsule PO PRN (20:58)
[2018-01-25] MEDS ORDERED: warfarin 3mg tablet PO ONE (21:00)
[2018-01-26 03:00] VITALS: BP 145/73
[2018-01-26 06:09] LABS: INR 2.4 INR; PROTHROMBIN TIME 24.3 SECONDS (9.0-12.0)
[2018-01-26 07:22] VITALS: BP 131/70
[2018-01-26] MEDS: diltiazem CD 120mg capsule (once-daily) PO SCH (08:23)
[2018-01-26] MEDS: sertraline 50mg tablet PO SCH (08:23)
[2018-01-26] MEDS: furosemide 20MG tablet PO SCH (08:23)
[2018-01-26] MEDS: ascorbic acid 500mg tablet PO SCH (08:23)
[2018-01-26] MEDS: oxybutynin 5mg tablet PO SCH ×2 (08:23→19:35)
[2018-01-26] MEDS: metoprolol succinate 25mg (24-HOUR) SR. Tablet PO SCH (08:23)
[2018-01-26] MEDS: folic acid 1mg tablet PO SCH (08:23)
[2018-01-26] MEDS: cyanocobalamin 500mcg tablet PO SCH (08:23)
[2018-01-26] MEDS: lactobacillus rhamnosus 10,000 MMU CELLS/CAPSULE PO SCH ×2 (08:23→19:35)
[2018-01-26] MEDS: losartan 25mg tablet PO SCH (08:23)
[2018-01-26 11:46] VITALS: BP 90/48
[2018-01-26] MEDS: insulin Lispro (HumaLOG) vial - multi-dose SQ SCH ×2 (13:30→19:24)
[2018-01-26] MEDS ORDERED: iohexol 300 MG/1 ML 50ml polymer ONE (13:59)
[2018-01-26] MEDS ORDERED: iohexol 300mg/ml 100ml inj. ONE (14:00)
[2018-01-26 16:04] VITALS: BP 133/80
[2018-01-26 19:00] VITALS: BP 125/60
[2018-01-26] MEDS: terazosin 5mg capsule PO SCH (20:15)
[2018-01-26] MEDS: atorvastatin 10mg tablet PO SCH (20:15)
[2018-01-26] MEDS: niacin 500mg ER (Niaspan) tablet PO SCH (20:15)
[2018-01-26] MEDS ORDERED: warfarin 3mg tablet PO ONE (21:00)
[2018-01-26] MEDS: insulin glargine (Lantus) pen - multi-dose SQ SCH (21:04)
[2018-01-26] MEDS: temazepam 15mg capsule PO PRN (21:06)
[2018-01-26 23:00] VITALS: BP 134/64
[2018-01-27 03:00] VITALS: BP 94/49
[2018-01-27 05:24] LABS: BASOPHILS % (AUTO) 0.2 % (0-1); EOSINOPHILS # (AUTO) 0.1 X10'3 (0-0.9); EOSINOPHILS % (AUTO) 2.1 % (0-6); HEMATOCRIT 25.6 % (42.0-52.0); HEMOGLOBIN 8.6 g/dl (14.0-17.9); LYMPHOCYTES # (AUTO) 0.3 X10'3 (1.1-4.8); LYMPHOCYTES % (AUTO) 5.6 % (21-51); MEAN CORPUSCULAR HEMOGLOBIN 30.8 PG (27.0-31.0); MEAN CORPUSCULAR HGB CONC 33.4 % (33.0-36.5); MEAN CORPUSCULAR VOLUME 92.1 FL (78-98); MEAN PLATELET VOLUME 7.9 FL (7.4-10.4); MONOCYTES # (AUTO) 0.3 X10'3 (0-0.9); MONOCYTES % (AUTO) 5.5 % (2-12); NEUTROPHILS # (AUTO) 4.4 X10'3 (1.8-7.7); NEUTROPHILS % (AUTO) 86.6 % (42-75); PLATELET COUNT 59 X10'3 (140-440); RED BLOOD COUNT 2.78 X10'6 (4.70-6.10); RED CELL DISTRIBUTION WIDTH 16.9 % (11.5-14.5); WHITE BLOOD COUNT 5.1 X10'3 (4.5-11.0)
[2018-01-27 05:29] LABS: INR 2.9 INR; PROTHROMBIN TIME 28.5 SECONDS (9.0-12.0)
[2018-01-27 06:00] VITALS: BP 129/48
[2018-01-27 06:08] LABS: ALANINE AMINOTRANSFERASE 34 U/L (12-78); ALBUMIN 2.2 G/DL (3.4-5.0); ALBUMIN/GLOBULIN RATIO 0.8 (1.1-1.5); ALKALINE PHOSPHATASE 126 IU/L (46-116); ANION GAP 9 (8-16); ASPARTATE AMINO TRANSFERASE 42 U/L (10-37); BILIRUBIN,TOTAL 0.4 MG/DL (0.1-1.0); BLOOD UREA NITROGEN 38 MG/DL (7-18); BUN/CREATININE RATIO 24.4 (5.4-32.0); CALCIUM 8.5 MG/DL (8.5-10.1); CHLORIDE 99 MMOL/L (99-107); CREATININE 1.56 MG/DL (0.60-1.10); GLUCOSE 55 MG/DL (70-104); POTASSIUM 4.5 MMOL/L (3.5-5.1); SODIUM 131 MMOL/L (135-145); TOTAL CARBON DIOXIDE 23.3 MMOL/L (24-32); eGFR 42 ML/MIN
[2018-01-27] MEDS: lactobacillus rhamnosus 10,000 MMU CELLS/CAPSULE PO SCH ×2 (08:38→20:51)
[2018-01-27] MEDS: furosemide 20MG tablet PO SCH (08:38)
[2018-01-27] MEDS: diltiazem CD 120mg capsule (once-daily) PO SCH (08:38)
[2018-01-27] MEDS: cyanocobalamin 500mcg tablet PO SCH (08:38)
[2018-01-27] MEDS: losartan 25mg tablet PO SCH (08:39)
[2018-01-27] MEDS: sertraline 50mg tablet PO SCH (08:39)
[2018-01-27] MEDS: oxybutynin 5mg tablet PO SCH ×2 (08:39→20:50)
[2018-01-27] MEDS: folic acid 1mg tablet PO SCH (08:39)
[2018-01-27] MEDS: metoprolol succinate 25mg (24-HOUR) SR. Tablet PO SCH (08:44)
[2018-01-27] MEDS: ascorbic acid 500mg tablet PO SCH (08:45)
[2018-01-27] MEDS: insulin Lispro (HumaLOG) vial - multi-dose SQ SCH ×3 (08:49→18:39)
[2018-01-27 11:00] VITALS: BP 151/55
[2018-01-27 15:00] VITALS: BP 136/24
[2018-01-27 19:00] VITALS: BP 118/56
[2018-01-27] MEDS: insulin glargine (Lantus) pen - multi-dose SQ SCH (20:48)
[2018-01-27] MEDS: niacin 500mg ER (Niaspan) tablet PO SCH (20:50)
[2018-01-27] MEDS: atorvastatin 10mg tablet PO SCH (20:50)
[2018-01-27] MEDS: terazosin 5mg capsule PO SCH (20:51)
[2018-01-27] MEDS ORDERED: warfarin 1mg tablet PO ONE (21:00)
[2018-01-27 23:00] VITALS: BP 120/68
[2018-01-28 03:00] VITALS: BP 111/60
[2018-01-28 05:46] LABS: BASOPHILS % (AUTO) 0.2 % (0-1); EOSINOPHILS # (AUTO) 0.1 X10'3 (0-0.9); EOSINOPHILS % (AUTO) 3.1 % (0-6); HEMATOCRIT 25.7 % (42.0-52.0); HEMOGLOBIN 8.7 g/dl (14.0-17.9); LYMPHOCYTES # (AUTO) 0.3 X10'3 (1.1-4.8); LYMPHOCYTES % (AUTO) 7.6 % (21-51); MEAN CORPUSCULAR HGB CONC 33.8 % (33.0-36.5); MEAN CORPUSCULAR VOLUME 91.6 FL (78-98); MEAN PLATELET VOLUME 8.2 FL (7.4-10.4); MONOCYTES # (AUTO) 0.3 X10'3 (0-0.9); MONOCYTES % (AUTO) 7.1 % (2-12); NEUTROPHILS # (AUTO) 3.6 X10'3 (1.8-7.7); PLATELET COUNT 56 X10'3 (140-440); RED BLOOD COUNT 2.81 X10'6 (4.70-6.10); RED CELL DISTRIBUTION WIDTH 16.7 % (11.5-14.5); WHITE BLOOD COUNT 4.4 X10'3 (4.5-11.0)
[2018-01-28 05:53] LABS: ALBUMIN 2.3 G/DL (3.4-5.0); ANION GAP 6 (8-16); BLOOD UREA NITROGEN 38 MG/DL (7-18); BUN/CREATININE RATIO 22.2 (5.4-32.0); CALCIUM 8.5 MG/DL (8.5-10.1); CHLORIDE 99 MMOL/L (99-107); CREATININE 1.71 MG/DL (0.60-1.10); GLUCOSE 86 MG/DL (70-104); POTASSIUM 4.6 MMOL/L (3.5-5.1); SODIUM 130 MMOL/L (135-145); TOTAL CARBON DIOXIDE 25.3 MMOL/L (24-32); eGFR 38 ML/MIN
[2018-01-28 05:54] LABS: INR 2.8 INR; PROTHROMBIN TIME 28.4 SECONDS (9.0-12.0)
[2018-01-28 06:00] VITALS: BP 136/68
[2018-01-28] MEDS: sertraline 50mg tablet PO SCH (08:12)
[2018-01-28] MEDS: cyanocobalamin 500mcg tablet PO SCH (08:12)
[2018-01-28] MEDS: losartan 25mg tablet PO SCH (08:12)
[2018-01-28] MEDS: folic acid 1mg tablet PO SCH (08:12)
[2018-01-28] MEDS: furosemide 20MG tablet PO SCH ×2 (08:12→12:48)
[2018-01-28] MEDS: lactobacillus rhamnosus 10,000 MMU CELLS/CAPSULE PO SCH ×2 (08:12→20:09)
[2018-01-28] MEDS: metoprolol succinate 25mg (24-HOUR) SR. Tablet PO SCH (08:12)
[2018-01-28] MEDS: diltiazem CD 120mg capsule (once-daily) PO SCH (08:12)
[2018-01-28] MEDS: ascorbic acid 500mg tablet PO SCH (08:13)
[2018-01-28] MEDS: oxybutynin 5mg tablet PO SCH ×2 (08:13→20:10)
[2018-01-28] MEDS: insulin Lispro (HumaLOG) vial - multi-dose SQ SCH ×2 (08:20→13:18)
[2018-01-28 10:42] LABS: PLATELET ESTIMATE DECREASED
[2018-01-28 10:43] LABS: ANISOCYTOSIS 1+; BURR CELLS FEW; ELLIPTOCYTES 1+; SCHISTOCYTES FEW
[2018-01-28 11:00] VITALS: BP 119/57
[2018-01-28 15:00] VITALS: BP 112/54
[2018-01-28 19:00] VITALS: BP 160/78
[2018-01-28] MEDS: albumin (human) 25% 100 ML IV solution IV SCH (20:08)
[2018-01-28] MEDS: niacin 500mg ER (Niaspan) tablet PO SCH (20:09)
[2018-01-28] MEDS: terazosin 5mg capsule PO SCH (20:09)
[2018-01-28] MEDS: atorvastatin 10mg tablet PO SCH (20:10)
[2018-01-28] MEDS ORDERED: warfarin 1mg tablet PO ONE (21:00)
[2018-01-28] MEDS: temazepam 15mg capsule PO PRN ×2 (21:21)
[2018-01-28] MEDS: insulin glargine (Lantus) pen - multi-dose SQ SCH (21:24)
[2018-01-28 23:00] VITALS: BP 151/66
[2018-01-29 03:00] VITALS: BP 138/77
[2018-01-29 06:00] VITALS: BP 159/32
[2018-01-29 06:46] LABS: INR 2.3 INR; PROTHROMBIN TIME 23.3 SECONDS (9.0-12.0)
[2018-01-29] MEDS: insulin Lispro (HumaLOG) vial - multi-dose SQ SCH (08:17)
[2018-01-29] MEDS: albumin (human) 25% 100 ML IV solution IV SCH ×2 (08:20→20:25)
[2018-01-29] MEDS: lactobacillus rhamnosus 10,000 MMU CELLS/CAPSULE PO SCH ×2 (08:21→20:04)
[2018-01-29] MEDS: furosemide 20MG tablet PO SCH (08:21)
[2018-01-29] MEDS: losartan 25mg tablet PO SCH (08:21)
[2018-01-29] MEDS: metoprolol succinate 25mg (24-HOUR) SR. Tablet PO SCH (08:22)
[2018-01-29] MEDS: folic acid 1mg tablet PO SCH (08:22)
[2018-01-29] MEDS: cyanocobalamin 500mcg tablet PO SCH (08:22)
[2018-01-29] MEDS: oxybutynin 5mg tablet PO SCH ×2 (08:23→20:04)
[2018-01-29] MEDS: diltiazem CD 120mg capsule (once-daily) PO SCH (08:23)
[2018-01-29] MEDS: ascorbic acid 500mg tablet PO SCH (08:23)
[2018-01-29] MEDS: sertraline 50mg tablet PO SCH (08:24)
[2018-01-29 08:30] LABS: BASOPHILS % (AUTO) 0.2 % (0-1); EOSINOPHILS # (AUTO) 0.1 X10'3 (0-0.9); EOSINOPHILS % (AUTO) 2.9 % (0-6); HEMATOCRIT 26.1 % (42.0-52.0); LYMPHOCYTES # (AUTO) 0.4 X10'3 (1.1-4.8); LYMPHOCYTES % (AUTO) 10.4 % (21-51); MEAN CORPUSCULAR HGB CONC 34.5 % (33.0-36.5); MEAN CORPUSCULAR VOLUME 92.7 FL (78-98); MEAN PLATELET VOLUME 7.8 FL (7.4-10.4); MONOCYTES # (AUTO) 0.3 X10'3 (0-0.9); NEUTROPHILS # (AUTO) 3.3 X10'3 (1.8-7.7); NEUTROPHILS % (AUTO) 79.5 % (42-75); PLATELET COUNT 61 X10'3 (140-440); RED BLOOD COUNT 2.82 X10'6 (4.70-6.10); RED CELL DISTRIBUTION WIDTH 16.1 % (11.5-14.5); WHITE BLOOD COUNT 4.1 X10'3 (4.5-11.0)
[2018-01-29 11:00] VITALS: BP 125/68
[2018-01-29] MEDS ORDERED: epoetin 20,000 units/ml inj SQ ONE (11:50)
[2018-01-29 14:03] LABS: ANISOCYTOSIS 1+; ELLIPTOCYTES 2+; PLATELET ESTIMATE DECREASED; POIKILOCYTOSIS 3+
[2018-01-29 14:10] LABS: ROULEAUX 1+; SCHISTOCYTES 1+
[2018-01-29 15:00] VITALS: BP 122/61
[2018-01-29 18:00] VITALS: BP 143/74
[2018-01-29] MEDS: atorvastatin 10mg tablet PO SCH (20:01)
[2018-01-29] MEDS: terazosin 5mg capsule PO SCH (20:04)
[2018-01-29] MEDS: niacin 500mg ER (Niaspan) tablet PO SCH (20:05)
[2018-01-29] MEDS ORDERED: warfarin 1mg tablet PO ONE (21:00)
[2018-01-29] MEDS: temazepam 15mg capsule PO PRN (21:23)
[2018-01-29] MEDS: insulin glargine (Lantus) pen - multi-dose SQ SCH (21:24)
[2018-01-29 22:00] VITALS: BP 130/41
[2018-01-30 02:00] VITALS: BP 107/50
[2018-01-30 06:09] LABS: PROTHROMBIN TIME 20.4 SECONDS (9.0-12.0)
[2018-01-30 07:00] VITALS: BP 152/55
[2018-01-30] MEDS: cyanocobalamin 500mcg tablet PO SCH (08:00)
[2018-01-30] MEDS: sertraline 50mg tablet PO SCH (10:40)
[2018-01-30] MEDS: lactobacillus rhamnosus 10,000 MMU CELLS/CAPSULE PO SCH ×2 (10:41→20:46)
[2018-01-30] MEDS: losartan 25mg tablet PO SCH (10:41)
[2018-01-30] MEDS: diltiazem CD 120mg capsule (once-daily) PO SCH (10:41)
[2018-01-30] MEDS: folic acid 1mg tablet PO SCH (10:41)
[2018-01-30] MEDS: metoprolol succinate 25mg (24-HOUR) SR. Tablet PO SCH (10:42)
[2018-01-30] MEDS: oxybutynin 5mg tablet PO SCH ×2 (10:42→20:46)
[2018-01-30] MEDS: ascorbic acid 500mg tablet PO SCH (10:42)
[2018-01-30] MEDS: furosemide 20MG tablet PO SCH (10:58)
[2018-01-30 11:00] VITALS: BP 131/69
[2018-01-30] MEDS ORDERED: albumin 25% 50mL bottle IV SCH (11:11)
[2018-01-30] MEDS: insulin Lispro (HumaLOG) vial - multi-dose SQ SCH ×2 (13:53→18:22)
[2018-01-30] MEDS ORDERED: furosemide 40mg/4ml inj IV ONE (14:45)
[2018-01-30 18:00] VITALS: BP 107/61
[2018-01-30] MEDS: niacin 500mg ER (Niaspan) tablet PO SCH (20:46)
[2018-01-30] MEDS: atorvastatin 10mg tablet PO SCH (20:46)
[2018-01-30] MEDS: albumin (human) 25% 100 ML IV solution IV SCH (20:51)
[2018-01-30] MEDS: terazosin 5mg capsule PO SCH (20:59)
[2018-01-30] MEDS ORDERED: warfarin 4mg tablet PO ONE (21:00)
[2018-01-30] MEDS: insulin glargine (Lantus) pen - multi-dose SQ SCH (21:41)
[2018-01-30] MEDS: temazepam 15mg capsule PO PRN (21:44)
[2018-01-30 22:00] VITALS: BP 118/46
[2018-01-31 02:00] VITALS: BP 140/66
[2018-01-31 05:58] LABS: INR 1.8 INR; PROTHROMBIN TIME 18.1 SECONDS (9.0-12.0)
[2018-01-31 07:00] VITALS: BP 110/51
[2018-01-31] MEDS: albumin (human) 25% 100 ML IV solution IV SCH (09:26)
[2018-01-31] MEDS: insulin Lispro (HumaLOG) vial - multi-dose SQ SCH (09:28)
[2018-01-31] MEDS: lactobacillus rhamnosus 10,000 MMU CELLS/CAPSULE PO SCH (09:28)
[2018-01-31] MEDS: diltiazem CD 120mg capsule (once-daily) PO SCH (09:28)
[2018-01-31] MEDS: metoprolol succinate 25mg (24-HOUR) SR. Tablet PO SCH (09:29)
[2018-01-31] MEDS: oxybutynin 5mg tablet PO SCH (09:30)
[2018-01-31] MEDS: cyanocobalamin 500mcg tablet PO SCH (09:30)
[2018-01-31] MEDS: sertraline 50mg tablet PO SCH (09:30)
[2018-01-31] MEDS: ascorbic acid 500mg tablet PO SCH (09:30)
[2018-01-31] MEDS: furosemide 20MG tablet PO SCH (09:31)
[2018-01-31] MEDS: folic acid 1mg tablet PO SCH (09:31)
[2018-01-31] MEDS: losartan 25mg tablet PO SCH (09:31)
[2018-01-31 11:00] VITALS: BP 127/65
== END 2018-01-31 14:17 | disposition home health service (06) | DRG 177 ==
LOC: ER 15:12 → ED HOLD 16:24 → EDBEDREQ 18:38 → EDBEDREQSVC 18:38 → CICU 2S 19:14 → PCU 3S 01-21 17:48
PROVIDERS: ADMIT Emergency Medicine; ATTEND Emergency Medicine
PROC: 5A09357 Assistance with Respiratory Ventilation, Less than 24 Consecutive Hours, Continuous Positive Airway Pressure (ICD-10-PCS; 2018-01-18)
PROC: 0W9930Z Drainage of Right Pleural Cavity with Drainage Device, Percutaneous Approach (ICD-10-PCS; principal; 2018-01-19)
PROC: 5A09357 Assistance with Respiratory Ventilation, Less than 24 Consecutive Hours, Continuous Positive Airway Pressure (ICD-10-PCS; 2018-01-19)
PROC: 30233R1 Transfusion of Nonautologous Platelets into Peripheral Vein, Percutaneous Approach (ICD-10-PCS; 2018-01-19)
PROC: 5A09357 Assistance with Respiratory Ventilation, Less than 24 Consecutive Hours, Continuous Positive Airway Pressure (ICD-10-PCS; 2018-01-24)
PROC: 3E0 Administration, Physiological Systems and Anatomical Regions, Introduction (ICD-10-PCS; 2018-01-26)
PROC: 5A09357 Assistance with Respiratory Ventilation, Less than 24 Consecutive Hours, Continuous Positive Airway Pressure (ICD-10-PCS; 2018-01-30)
DX: J86.9 Pyothorax without fistula (principal); I50.33 Acute on chronic diastolic (congestive) heart failure; J96.00 Acute respiratory failure, unspecified whether with hypoxia or hypercapnia; I13.0 Hypertensive heart and chronic kidney disease with heart failure and stage 1 through stage 4 chronic kidney disease, or unspecified chronic kidney disease; I31.3 Pericardial effusion (noninflammatory); J91.8 Pleural effusion in other conditions classified elsewhere; R18.8 Other ascites; J94.2 Hemothorax; J44.9 Chronic obstructive pulmonary disease, unspecified; I48.91 Unspecified atrial fibrillation; D46.9 Myelodysplastic syndrome, unspecified; D69.6 Thrombocytopenia, unspecified; E66.9 Obesity, unspecified; E78.00 Pure hypercholesterolemia, unspecified; E78.5 Hyperlipidemia, unspecified; G47.33 Obstructive sleep apnea (adult) (pediatric); I25.10 Atherosclerotic heart disease of native coronary artery without angina pectoris; K21.9 Gastro-esophageal reflux disease without esophagitis; N18.3 Chronic kidney disease, stage 3 (moderate); N40.1 Benign prostatic hyperplasia with lower urinary tract symptoms; E11.22 Type 2 diabetes mellitus with diabetic chronic kidney disease; F32.9 Major depressive disorder, single episode, unspecified; I27.20 Pulmonary hypertension, unspecified; I05.0 Rheumatic mitral stenosis; R33.8 Other retention of urine; Z90.49 Acquired absence of other specified parts of digestive tract; Z95.2 Presence of prosthetic heart valve; Z79.899 Other long term (current) drug therapy; Z79.01 Long term (current) use of anticoagulants; Z85.820 Personal history of malignant melanoma of skin; Z87.891 Personal history of nicotine dependence; Z68.29 Body mass index [BMI] 29.0-29.9, adult
CPT/HCPCS: 32557; 36415; 71045; 71046; 71250; 74176; 76000; 80048; 80053; 81003; 82040; 82042; 82150; 82945; 82948; 83036; 83615; 83735; 83880; 84155; 84157; 84484; 85025; 85610; 85730; 86885; 86900; 86901; 87040; 87070; 87075; 88108; 88305; 89051; 93005; 93306; 94640; 94660; 94760; 99291; A6213; A6222; A6223; A6253; A6257; A6258; A6449; C1758; J0885; J1815; J1940; J1956; J2001; J2270; J3010; J3430; J7030; J7040; P9035; P9047; Q9967

== ENCOUNTER 2018-04-21 11:31 | Inpatient (IN) | payer MEDICARE, OTHER ==
[2018-04-21] VITALS (8 sets, daily range): BP systolic 97–114; BP diastolic 44–75
[~2018-04-21] VITALS: Ht 160 cm; Wt 78.6 kg
[~2018-04-21 11:31] MED LIST changes: -[UNRECOGNIZED DRUG - CODE] IM
[2018-04-21 12:25] LABS: BASOPHILS % (AUTO) 0.3 % (0-1); EOSINOPHILS % (AUTO) 0.3 % (0-6); LYMPHOCYTES # (AUTO) 0.4 X10'3 (1.1-4.8); LYMPHOCYTES % (AUTO) 15.2 % (21-51); MEAN CORPUSCULAR HEMOGLOBIN 33.1 PG (27.0-31.0); MEAN CORPUSCULAR HGB CONC 32.5 % (33.0-36.5); MEAN CORPUSCULAR VOLUME 101.7 FL (78-98); MONOCYTES # (AUTO) 0.2 X10'3 (0-0.9); NEUTROPHILS # (AUTO) 2.1 X10'3 (1.8-7.7); NEUTROPHILS % (AUTO) 77.2 % (42-75); RED BLOOD COUNT 1.92 X10'6 (4.70-6.10); RED CELL DISTRIBUTION WIDTH 23.5 % (11.5-14.5); WHITE BLOOD COUNT 2.7 X10'3 (4.5-11.0)
[2018-04-21 12:39] LABS: PROTHROMBIN TIME 37.3 SECONDS (9.0-12.0)
[2018-04-21 12:40] LABS: PARTIAL THROMBOPLASTIN TIME 34 SECONDS (22-32)
[2018-04-21 12:43] LABS: ALANINE AMINOTRANSFERASE 22 U/L (12-78); ALBUMIN 2.6 G/DL (3.4-5.0); ALKALINE PHOSPHATASE 60 IU/L (46-116); ANION GAP 6 (8-16); ASPARTATE AMINO TRANSFERASE 23 U/L (10-37); BILIRUBIN,TOTAL 0.9 MG/DL (0.1-1.0); BLOOD UREA NITROGEN 41 MG/DL (7-18); BUN/CREATININE RATIO 21.1 (5.4-32.0); CALCIUM 8.7 MG/DL (8.5-10.1); CHLORIDE 101 MMOL/L (99-107); CREATININE 1.94 MG/DL (0.60-1.10); GLUCOSE 220 MG/DL (70-104); HEMATOCRIT 19.5 % (42.0-52.0); HEMOGLOBIN 6.3 g/dl (14.0-17.9); PLATELET COUNT 46 X10'3 (140-440); POTASSIUM 3.6 MMOL/L (3.5-5.1); SODIUM 136 MMOL/L (135-145); TOTAL CARBON DIOXIDE 29.1 MMOL/L (24-32); TOTAL PROTEIN 5.1 G/DL (6.4-8.2); eGFR 33 ML/MIN
[2018-04-21 12:49] LABS: ANISOCYTOSIS 3+; PLATELET ESTIMATE DECREASED; TOTAL CELLS COUNTED 100
[2018-04-21 12:50] LABS: POIKILOCYTOSIS 2+; POLYCHROMASIA 1+
[2018-04-21 12:51] LABS: BURR CELLS FEW; ELLIPTOCYTES FEW; HYPOCHROMASIA 1+; ROULEAUX 1+; SCHISTOCYTES FEW; TEAR DROP CELLS FEW
[2018-04-21] MEDS ORDERED: AMIO100T4 PO (14:19)
[2018-04-21] MEDS ORDERED: MULT-955 PO (14:22)
[2018-04-21] MEDS ORDERED: WARF1TAB PO (14:25)
[2018-04-21] MEDS: normal saline 1000ml 1,000 ML IV SCH (14:43)
[2018-04-21] MEDS: acyclovir inj 1,000 MG in normal saline 250ml IV soln 230 ML IV SCH (14:44)
[2018-04-21] MEDS ORDERED: magnesium hydroxide 30ml (MOM) UD suspension PO PRN (14:45)
[2018-04-21] MEDS ORDERED: potassium Cl 20 mEq SR tablet PO PRN (14:45)
[2018-04-21] MEDS ORDERED: dextrose ORAL solution 15 GM/59 ML bottle PO PRN ×2 (14:45)
[2018-04-21] MEDS ORDERED: HYDROcodone/acetaminophen 5mg/325mg tablet PO PRN (14:45)
[2018-04-21] MEDS ORDERED: acetaminophen 325mg tablet PO PRN (14:45)
[2018-04-21] MEDS ORDERED: magnesium 4gm in 100ml NS 100 ML IV PRN (14:45)
[2018-04-21] MEDS ORDERED: diphenhydrAMINE 50 mg/ml inj IV PRN (14:45)
[2018-04-21] MEDS: K and/or MAG REPLACEMENT MC SCH (14:45)
[2018-04-21] MEDS ORDERED: diphenhydrAMINE 25mg capsule PO PRN (14:45)
[2018-04-21] MEDS ORDERED: mag hydrox/Alum hydrox/simeth 30ml oral suspension PO PRN (14:45)
[2018-04-21] MEDS ORDERED: glucagon, human recombinant 1mg kit SUBCUT PRN (14:45)
[2018-04-21] MEDS ORDERED: magnesium Cl slow-release 64mg tablet PO PRN (14:45)
[2018-04-21] MEDS ORDERED: potassium Cl 40MEQ/NS 500ml 500 ML IV PRN ×2 (14:45)
[2018-04-21] MEDS ORDERED: ondansetron/PF 4mg/2ml inj IV PRN (14:45)
[2018-04-21] MEDS ORDERED: morphine 2 MG/ML inj. syringe IV PRN (14:45)
[2018-04-21] MEDS ORDERED: dextrose 50%-water 50ml dispensing syringe IV PRN ×2 (14:45)
[2018-04-21] MEDS ORDERED: magnesium 1gm/100ml D5W IVPB 100 ML IV PRN (14:45)
[2018-04-21] MEDS ORDERED: MESSAGE TO PHARMACY PO ONE (14:45)
[2018-04-21 14:57] LABS: OCCULT BLOOD STOOL POSITIVE (Neg)
[2018-04-21 16:11] LABS: HEMOGLOBIN A1C 5.5 % (4.5-6.2)
[2018-04-21] MEDS: ipratropium/albuterol 3ml nebule NEB SCH ×2 (19:47→23:35)
[2018-04-21] MEDS: ascorbic acid 500mg tablet PO SCH (20:00)
[2018-04-21] MEDS: furosemide 40mg/4ml inj IV SCH (20:00)
[2018-04-21] MEDS ORDERED: temazepam 15mg capsule PO PRN (21:00)
[2018-04-21] MEDS ORDERED: NIACIN 1500 MG PO SCH (21:00)
[2018-04-21] MEDS ORDERED: [UNRECOGNIZED DRUG - OTHER] NS SCH (21:00)
[2018-04-21] MEDS ORDERED: OXYGEN NS SCH (21:00)
[2018-04-21] MEDS: niacin 500mg ER (Niaspan) tablet PO SCH (21:10)
[2018-04-21] MEDS: Terazosin 1mg capsule PO SCH (21:10)
[2018-04-21] MEDS: atorvastatin 10mg tablet PO SCH (21:10)
[2018-04-21] MEDS: tolterodine 2mg SR capsule (24hr) PO SCH (23:23)
[2018-04-22] VITALS (20 sets, daily range): BP systolic 92–140; BP diastolic 39–71
[2018-04-22] MEDS: insulin glargine (Lantus) pen - multi-dose SQ SCH ×2 (00:14→21:41)
[2018-04-22] MEDS: acyclovir inj 1,000 MG in normal saline 250ml IV soln 230 ML IV SCH ×3 (01:14→16:00)
[2018-04-22] MEDS: acetaminophen 325mg tablet PO PRN ×2 (02:45→22:47)
[2018-04-22] MEDS: ipratropium/albuterol 3ml nebule NEB SCH ×5 (03:32→19:24)
[2018-04-22] MEDS ORDERED: diltiazem CD 120mg capsule (once-daily) PO SCH (08:00)
[2018-04-22] MEDS ORDERED: DILTIAZEM HCL 240 MG PO SCH (08:00)
[2018-04-22] MEDS: K and/or MAG REPLACEMENT MC SCH (08:00)
[2018-04-22] MEDS ORDERED: non-formulary drug (Metoprolol Succinate* (Toprol Xl*) 1 TAB) PO SCH (08:00)
[2018-04-22] MEDS ORDERED: non-formulary drug (Multivitamin (Daily Value) 1 TAB) PO SCH (08:00)
[2018-04-22 08:01] LABS: BASOPHILS % (AUTO) 0.4 % (0-1); EOSINOPHILS % (AUTO) 0 % (0-6); LYMPHOCYTES # (AUTO) 0.5 X10'3 (1.1-4.8); LYMPHOCYTES % (AUTO) 17.5 % (21-51); MEAN CORPUSCULAR HEMOGLOBIN 32.9 PG (27.0-31.0); MEAN CORPUSCULAR HGB CONC 33.4 % (33.0-36.5); MEAN CORPUSCULAR VOLUME 98.3 FL (78-98); MEAN PLATELET VOLUME 8.5 FL (7.4-10.4); MONOCYTES # (AUTO) 0.2 X10'3 (0-0.9); MONOCYTES % (AUTO) 7.7 % (2-12); NEUTROPHILS # (AUTO) 2.3 X10'3 (1.8-7.7); NEUTROPHILS % (AUTO) 74.4 % (42-75); RED BLOOD COUNT 2.13 X10'6 (4.70-6.10); RED CELL DISTRIBUTION WIDTH 22.8 % (11.5-14.5); WHITE BLOOD COUNT 3.1 X10'3 (4.5-11.0)
[2018-04-22 08:07] LABS: HEMATOCRIT 20.9 % (42.0-52.0)
[2018-04-22 08:09] LABS: PLATELET COUNT 47 X10'3 (140-440)
[2018-04-22] MEDS: ascorbic acid 500mg tablet PO SCH ×2 (08:11→21:00)
[2018-04-22] MEDS: cyanocobalamin 500mcg tablet PO SCH (08:11)
[2018-04-22] MEDS: sertraline 50mg tablet PO SCH (08:11)
[2018-04-22 08:12] LABS: ALANINE AMINOTRANSFERASE 20 U/L (12-78); ALBUMIN 2.3 G/DL (3.4-5.0); ALKALINE PHOSPHATASE 51 IU/L (46-116); ANION GAP 5 (8-16); ASPARTATE AMINO TRANSFERASE 20 U/L (10-37); BILIRUBIN,TOTAL 1.2 MG/DL (0.1-1.0); BLOOD UREA NITROGEN 39 MG/DL (7-18); BUN/CREATININE RATIO 21.3 (5.4-32.0); CALCIUM 8.2 MG/DL (8.5-10.1); CHLORIDE 106 MMOL/L (99-107); CREATININE 1.83 MG/DL (0.60-1.10); GLUCOSE 143 MG/DL (70-104); MAGNESIUM 1.9 MG/DL (1.5-2.4); PHOSPHORUS 3.1 MG/DL (2.3-4.5); POTASSIUM 3.2 MMOL/L (3.5-5.1); SODIUM 141 MMOL/L (135-145); TOTAL CARBON DIOXIDE 30.5 MMOL/L (24-32); TOTAL PROTEIN 4.5 G/DL (6.4-8.2); eGFR 35 ML/MIN
[2018-04-22] MEDS: folic acid 1mg tablet PO SCH (08:12)
[2018-04-22] MEDS: multivitamins, therapeutics tablet PO SCH (08:12)
[2018-04-22 08:14] LABS: INR 3.9 INR; PARTIAL THROMBOPLASTIN TIME 36 SECONDS (22-32); PROTHROMBIN TIME 37.1 SECONDS (9.0-12.0)
[2018-04-22] MEDS: potassium Cl 20 mEq SR tablet PO PRN ×2 (11:04→16:08)
[2018-04-22] MEDS: amiodarone 100mg tablet PO SCH (11:11)
[2018-04-22] MEDS: metoprolol succinate 25mg (24-HOUR) SR. Tablet PO SCH (11:11)
[2018-04-22] MEDS: furosemide 40mg/4ml inj IV SCH ×3 (11:12→21:00)
[2018-04-22 13:04] LABS: CLARITY,URINE CLEAR (Clear); COLOR,URINE YELLOW (Yellow); GLUCOSE, URINE NEGATIVE (Neg); KETONES,URINE NEGATIVE (Neg); LEUKOCYTE ESTERASE ,URINE NEGATIVE (Neg); NITRITES, URINE NEGATIVE (Neg); OCCULT BLOOD,URINE TRACE-INTACT (Neg); PH,URINE 6.5 (4.8-8.0); PROTEIN,URINE NEGATIVE (Neg); UROBILINOGEN,URINE 0.2 E.U/dL (0.2-1.0)
[2018-04-22 13:09] LABS: HYALINE CASTS 0-3 /LPF (NEGATIVE); SQUAMOUS EPITHELIAL CELL,UR FEW /LPF (FEW); UA COLLECTION TYPE VOIDED
[2018-04-22 13:10] LABS: BACTERIA,URINE FEW /HPF (Neg); RBC,URINE 0-2 /HPF (0-2); WBC,URINE 0-4 /HPF (0-4)
[2018-04-22] MEDS: atorvastatin 10mg tablet PO SCH (21:00)
[2018-04-22] MEDS: niacin 500mg ER (Niaspan) tablet PO SCH (21:01)
[2018-04-22] MEDS: Terazosin 1mg capsule PO SCH (21:01)
[2018-04-22] MEDS: tolterodine 2mg SR capsule (24hr) PO SCH (21:01)
[2018-04-22] MEDS: insulin Lispro (HumaLOG) vial - multi-dose SQ SCH (21:39)
[2018-04-22 21:51] LABS: HEMATOCRIT 26.1 % (42.0-52.0); HEMOGLOBIN 8.8 g/dl (14.0-17.9); MEAN CORPUSCULAR HGB CONC 33.5 % (33.0-36.5); MEAN CORPUSCULAR VOLUME 95.6 FL (78-98); MEAN PLATELET VOLUME 8.1 FL (7.4-10.4); RED BLOOD COUNT 2.73 X10'6 (4.70-6.10); RED CELL DISTRIBUTION WIDTH 21.9 % (11.5-14.5); WHITE BLOOD COUNT 2.7 X10'3 (4.5-11.0)
[2018-04-22 22:16] LABS: PLATELET COUNT 42 X10'3 (140-440)
[2018-04-23] VITALS (13 sets, daily range): BP systolic 112–145; BP diastolic 53–74
[2018-04-23] MEDS: ipratropium/albuterol 3ml nebule NEB SCH ×7 (00:04→23:04)
[2018-04-23] MEDS: acyclovir inj 1,000 MG in normal saline 250ml IV soln 230 ML IV SCH ×4 (00:34→16:00)
[2018-04-23] MEDS: potassium Cl 20 mEq SR tablet PO PRN ×2 (02:43→20:44)
[2018-04-23 05:03] LABS: BASOPHILS % (AUTO) 0.1 % (0-1); EOSINOPHILS % (AUTO) 0.7 % (0-6); HEMATOCRIT 25.4 % (42.0-52.0); HEMOGLOBIN 8.5 g/dl (14.0-17.9); LYMPHOCYTES # (AUTO) 0.7 X10'3 (1.1-4.8); LYMPHOCYTES % (AUTO) 19.2 % (21-51); MEAN CORPUSCULAR HGB CONC 33.5 % (33.0-36.5); MEAN CORPUSCULAR VOLUME 95.3 FL (78-98); MEAN PLATELET VOLUME 7.9 FL (7.4-10.4); MONOCYTES # (AUTO) 0.2 X10'3 (0-0.9); MONOCYTES % (AUTO) 6.7 % (2-12); NEUTROPHILS # (AUTO) 2.6 X10'3 (1.8-7.7); NEUTROPHILS % (AUTO) 73.3 % (42-75); RED BLOOD COUNT 2.66 X10'6 (4.70-6.10); RED CELL DISTRIBUTION WIDTH 21.8 % (11.5-14.5); WHITE BLOOD COUNT 3.5 X10'3 (4.5-11.0)
[2018-04-23 05:16] LABS: INR 3.9 INR; PROTHROMBIN TIME 36.6 SECONDS (9.0-12.0)
[2018-04-23 05:17] LABS: PARTIAL THROMBOPLASTIN TIME 35 SECONDS (22-32)
[2018-04-23 05:18] LABS: PLATELET COUNT 40 X10'3 (140-440)
[2018-04-23 05:32] LABS: ALANINE AMINOTRANSFERASE 19 U/L (12-78); ALBUMIN 2.4 G/DL (3.4-5.0); ALKALINE PHOSPHATASE 63 IU/L (46-116); ANION GAP 9 (8-16); ASPARTATE AMINO TRANSFERASE 25 U/L (10-37); BILIRUBIN,TOTAL 1.4 MG/DL (0.1-1.0); BLOOD UREA NITROGEN 38 MG/DL (7-18); BUN/CREATININE RATIO 20.5 (5.4-32.0); CALCIUM 8.1 MG/DL (8.5-10.1); CHLORIDE 105 MMOL/L (99-107); CREATININE 1.85 MG/DL (0.60-1.10); GLUCOSE 102 MG/DL (70-104); MAGNESIUM 1.7 MG/DL (1.5-2.4); PHOSPHORUS 3.1 MG/DL (2.3-4.5); POTASSIUM 3.4 MMOL/L (3.5-5.1); SODIUM 141 MMOL/L (135-145); TOTAL CARBON DIOXIDE 26.6 MMOL/L (24-32); TOTAL PROTEIN 4.8 G/DL (6.4-8.2); eGFR 35 ML/MIN
[2018-04-23] MEDS: amiodarone 100mg tablet PO SCH (07:41)
[2018-04-23 07:47] LABS: ANISOCYTOSIS 3+; ELLIPTOCYTES 1+; PLATELET ESTIMATE DECREASED; POIKILOCYTOSIS 1+; POLYCHROMASIA 1+
[2018-04-23 07:48] LABS: BURR CELLS FEW
[2018-04-23] MEDS: furosemide 40mg/4ml inj IV SCH ×2 (08:00→20:00)
[2018-04-23] MEDS: K and/or MAG REPLACEMENT MC SCH (08:00)
[2018-04-23] MEDS: ascorbic acid 500mg tablet PO SCH ×2 (08:00→20:40)
[2018-04-23] MEDS: cyanocobalamin 500mcg tablet PO SCH (08:00)
[2018-04-23] MEDS: multivitamins, therapeutics tablet PO SCH (08:00)
[2018-04-23] MEDS: sertraline 50mg tablet PO SCH (08:00)
[2018-04-23] MEDS: folic acid 1mg tablet PO SCH (08:00)
[2018-04-23] MEDS: metoprolol succinate 25mg (24-HOUR) SR. Tablet PO SCH (08:00)
[2018-04-23] MEDS ORDERED: phytonadione inj. 10 MG in normal saline 100ml IV soln 99 ML IV STA (14:02)
[2018-04-23] MEDS: normal saline 1000ml 1,000 ML IV SCH (15:37)
[2018-04-23] MEDS ORDERED: LIDOcaine Viscous 15ml cup ONE (16:45)
[2018-04-23] MEDS ORDERED: fentaNYL/PF 50MCG/1 ML 2ML syringe ONE (16:45)
[2018-04-23] MEDS ORDERED: MIDAZolam 5mg/5ml vial ONE (16:45)
[2018-04-23] MEDS: niacin 500mg ER (Niaspan) tablet PO SCH (20:40)
[2018-04-23] MEDS: atorvastatin 10mg tablet PO SCH (20:40)
[2018-04-23] MEDS: tolterodine 2mg SR capsule (24hr) PO SCH (20:42)
[2018-04-23] MEDS: Terazosin 1mg capsule PO SCH (20:42)
[2018-04-23] MEDS: insulin glargine (Lantus) pen - multi-dose SQ SCH (22:14)
[2018-04-24 02:00] VITALS: BP 149/71
[2018-04-24] MEDS: ipratropium/albuterol 3ml nebule NEB SCH ×3 (03:20→11:17)
[2018-04-24] MEDS: acetaminophen 325mg tablet PO PRN (03:38)
[2018-04-24 05:54] LABS: BASOPHILS % (AUTO) 0.4 % (0-1); EOSINOPHILS # (AUTO) 0.1 X10'3 (0-0.9); EOSINOPHILS % (AUTO) 1.3 % (0-6); HEMATOCRIT 23.7 % (42.0-52.0); HEMOGLOBIN 8.1 g/dl (14.0-17.9); LYMPHOCYTES # (AUTO) 0.6 X10'3 (1.1-4.8); LYMPHOCYTES % (AUTO) 14.8 % (21-51); MEAN CORPUSCULAR HEMOGLOBIN 33.1 PG (27.0-31.0); MEAN CORPUSCULAR VOLUME 97.6 FL (78-98); MEAN PLATELET VOLUME 8.7 FL (7.4-10.4); MONOCYTES # (AUTO) 0.2 X10'3 (0-0.9); MONOCYTES % (AUTO) 4.9 % (2-12); NEUTROPHILS # (AUTO) 3.3 X10'3 (1.8-7.7); NEUTROPHILS % (AUTO) 78.6 % (42-75); RED BLOOD COUNT 2.43 X10'6 (4.70-6.10); RED CELL DISTRIBUTION WIDTH 22.6 % (11.5-14.5); WHITE BLOOD COUNT 4.2 X10'3 (4.5-11.0)
[2018-04-24 06:02] LABS: ALANINE AMINOTRANSFERASE 20 U/L (12-78); ALBUMIN 2.3 G/DL (3.4-5.0); ALKALINE PHOSPHATASE 67 IU/L (46-116); ANION GAP 6 (8-16); ASPARTATE AMINO TRANSFERASE 24 U/L (10-37); BILIRUBIN,TOTAL 1.3 MG/DL (0.1-1.0); BLOOD UREA NITROGEN 38 MG/DL (7-18); BUN/CREATININE RATIO 21.5 (5.4-32.0); CALCIUM 8.4 MG/DL (8.5-10.1); CHLORIDE 110 MMOL/L (99-107); CREATININE 1.77 MG/DL (0.60-1.10); GLUCOSE 53 MG/DL (70-104); PHOSPHORUS 3.3 MG/DL (2.3-4.5); POTASSIUM 3.7 MMOL/L (3.5-5.1); SODIUM 143 MMOL/L (135-145); TOTAL CARBON DIOXIDE 26.9 MMOL/L (24-32); TOTAL PROTEIN 4.7 G/DL (6.4-8.2); eGFR 37 ML/MIN
[2018-04-24 06:16] LABS: PLATELET COUNT 37 X10'3 (140-440)
[2018-04-24] MEDS: K and/or MAG REPLACEMENT MC SCH (06:34)
[2018-04-24 06:43] VITALS: BP 104/52
[2018-04-24 06:55] LABS: INR 1.8 INR; PROTHROMBIN TIME 17.5 SECONDS (9.0-12.0)
[2018-04-24 06:56] LABS: PARTIAL THROMBOPLASTIN TIME 32 SECONDS (22-32)
[2018-04-24 07:11] LABS: ANISOCYTOSIS 3+; LARGE PLATELETS FEW; PLATELET ESTIMATE DECREASED; POIKILOCYTOSIS 1+; POLYCHROMASIA 1+; SCHISTOCYTES FEW
[2018-04-24] MEDS: ascorbic acid 500mg tablet PO SCH (07:28)
[2018-04-24] MEDS: sertraline 50mg tablet PO SCH (07:28)
[2018-04-24] MEDS: amiodarone 100mg tablet PO SCH (07:28)
[2018-04-24] MEDS: metoprolol succinate 25mg (24-HOUR) SR. Tablet PO SCH (07:28)
[2018-04-24] MEDS: folic acid 1mg tablet PO SCH (07:29)
[2018-04-24] MEDS: multivitamins, therapeutics tablet PO SCH (07:29)
[2018-04-24] MEDS: furosemide 40mg/4ml inj IV SCH (07:29)
[2018-04-24] MEDS: acyclovir inj 1,000 MG in normal saline 250ml IV soln 230 ML IV SCH ×3 (07:29)
[2018-04-24] MEDS: cyanocobalamin 500mcg tablet PO SCH (07:29)
[2018-04-24] MEDS: insulin Lispro (HumaLOG) vial - multi-dose SQ SCH (08:30)
[2018-04-24] MEDS ORDERED: PANT40TA4 PO ×2 (11:12→11:17)
[2018-04-24] MEDS ORDERED: ACYC-202 PO (11:12)
[2018-04-24 11:42] VITALS: BP 114/57
[2018-04-24] MEDS ORDERED: acyclovir inj 750 MG in normal saline 250ml IV soln 235 ML IV SCH (20:00)
== END 2018-04-24 13:40 | disposition home health service (06) | DRG 377 ==
LOC: ER 11:32 → ED HOLD 14:50 → CMPBEDREQ 19:24 → PCU 3S 20:00
PROVIDERS: ADMIT Family Medicine; ATTEND Family Medicine
PROC: 5A09357 Assistance with Respiratory Ventilation, Less than 24 Consecutive Hours, Continuous Positive Airway Pressure (ICD-10-PCS; 2018-04-21)
PROC: 30233N1 Transfusion of Nonautologous Red Blood Cells into Peripheral Vein, Percutaneous Approach (ICD-10-PCS; 2018-04-21)
PROC: 5A09357 Assistance with Respiratory Ventilation, Less than 24 Consecutive Hours, Continuous Positive Airway Pressure (ICD-10-PCS; 2018-04-22)
PROC: 30233N1 Transfusion of Nonautologous Red Blood Cells into Peripheral Vein, Percutaneous Approach (ICD-10-PCS; 2018-04-22)
PROC: 0DJ08ZZ Inspection of Upper Intestinal Tract, Via Natural or Artificial Opening Endoscopic (ICD-10-PCS; principal; 2018-04-23)
PROC: 5A09357 Assistance with Respiratory Ventilation, Less than 24 Consecutive Hours, Continuous Positive Airway Pressure (ICD-10-PCS; 2018-04-23)
PROC: 30233L1 Transfusion of Nonautologous Fresh Plasma into Peripheral Vein, Percutaneous Approach (ICD-10-PCS; 2018-04-23)
PROC: 30233K1 Transfusion of Nonautologous Frozen Plasma into Peripheral Vein, Percutaneous Approach (ICD-10-PCS; 2018-04-23)
PROC: 5A09357 Assistance with Respiratory Ventilation, Less than 24 Consecutive Hours, Continuous Positive Airway Pressure (ICD-10-PCS; 2018-04-24)
DX: K29.71 Gastritis, unspecified, with bleeding (principal); J96.90 Respiratory failure, unspecified, unspecified whether with hypoxia or hypercapnia; D68.9 Coagulation defect, unspecified; D61.818 Other pancytopenia; I13.0 Hypertensive heart and chronic kidney disease with heart failure and stage 1 through stage 4 chronic kidney disease, or unspecified chronic kidney disease; I50.30 Unspecified diastolic (congestive) heart failure; B02.9 Zoster without complications; D50.0 Iron deficiency anemia secondary to blood loss (chronic); I27.81 Cor pulmonale (chronic); D46.9 Myelodysplastic syndrome, unspecified; K44.9 Diaphragmatic hernia without obstruction or gangrene; K57.10 Diverticulosis of small intestine without perforation or abscess without bleeding; E11.22 Type 2 diabetes mellitus with diabetic chronic kidney disease; E78.00 Pure hypercholesterolemia, unspecified; E78.5 Hyperlipidemia, unspecified; E87.6 Hypokalemia; G47.30 Sleep apnea, unspecified; I25.10 Atherosclerotic heart disease of native coronary artery without angina pectoris; I48.2 Chronic atrial fibrillation; J44.9 Chronic obstructive pulmonary disease, unspecified; K70.31 Alcoholic cirrhosis of liver with ascites; K21.9 Gastro-esophageal reflux disease without esophagitis; K64.9 Unspecified hemorrhoids; Z96.659 Presence of unspecified artificial knee joint; Z96.643 Presence of artificial hip joint, bilateral; N18.3 Chronic kidney disease, stage 3 (moderate); N40.0 Benign prostatic hyperplasia without lower urinary tract symptoms; Z66 Do not resuscitate; Z95.2 Presence of prosthetic heart valve; Z99.81 Dependence on supplemental oxygen; Z90.49 Acquired absence of other specified parts of digestive tract; Z98.61 Coronary angioplasty status; Z79.899 Other long term (current) drug therapy; Z79.01 Long term (current) use of anticoagulants; Z87.891 Personal history of nicotine dependence; Z80.9 Family history of malignant neoplasm, unspecified
CPT/HCPCS: 36415; 71045; 71250; 80053; 81001; 82272; 82948; 83036; 83735; 83880; 84100; 84484; 85025; 85027; 85610; 85730; 86885; 86900; 86901; 86920; 87070; 93005; 93308; 94640; 94760; 96374; 97110; 97116; 97161; 97530; 99152; 99285; A4620; G0378; J0133; J1815; J1940; J2250; J3010; J3430; J3480; J7030; P9016; P9059

== ENCOUNTER 2018-04-30 22:29 | Inpatient (IN) | payer MEDICARE, OTHER ==
[~2018-04-30] VITALS: Ht 167.6 cm; Wt 75.0 kg
[~2018-04-30 22:29] MED LIST changes: +ACYC-202 PO; +AMIO100T4 PO; -COU4T PO; -DILT240C PO; -GLIP2.5T3 PO; -IRBE75TA30 PO; +MULT-955 PO; +PANT40TA4 PO
[2018-04-30] MEDS: normal saline 1000ML IV soln IVB ONE (22:45)
[2018-04-30] MEDS ORDERED: normal saline 1000ml 1,000 ML IV ONE (22:45)
[2018-04-30] MEDS ORDERED: digoxin 250mcg/ml 2ml ampule IV ONE (22:50)
[2018-04-30] MEDS ORDERED: pantoprazole 40 MG vial IV ONE (22:50)
[2018-04-30 23:16] LABS: BASOPHILS % (AUTO) 0 % (0-1); EOSINOPHILS % (AUTO) 0 % (0-6); LYMPHOCYTES # (AUTO) 0.1 X10'3 (1.1-4.8); LYMPHOCYTES % (AUTO) 1.1 % (21-51); MEAN CORPUSCULAR HEMOGLOBIN 33.2 PG (27.0-31.0); MEAN CORPUSCULAR HGB CONC 33.6 % (33.0-36.5); MEAN CORPUSCULAR VOLUME 98.8 FL (78-98); MONOCYTES # (AUTO) 0.1 X10'3 (0-0.9); NEUTROPHILS # (AUTO) 4.7 X10'3 (1.8-7.7); NEUTROPHILS % (AUTO) 96.9 % (42-75); RED BLOOD COUNT 2.12 X10'6 (4.70-6.10); WHITE BLOOD COUNT 4.8 X10'3 (4.5-11.0)
[2018-04-30 23:24] LABS: HEMOGLOBIN 7.1 g/dl (14.0-17.9); PLATELET COUNT 40 X10'3 (140-440)
[2018-04-30 23:33] LABS: ALANINE AMINOTRANSFERASE 186 U/L (12-78); ALBUMIN 2.1 G/DL (3.4-5.0); ALKALINE PHOSPHATASE 453 IU/L (46-116); ANION GAP 12 (8-16); ASPARTATE AMINO TRANSFERASE 217 U/L (10-37); BILIRUBIN,TOTAL 5.4 MG/DL (0.1-1.0); BLOOD UREA NITROGEN 49 MG/DL (7-18); BUN/CREATININE RATIO 19.4 (5.4-32.0); CALCIUM 8.6 MG/DL (8.5-10.1); CHLORIDE 101 MMOL/L (99-107); CREATININE 2.53 MG/DL (0.60-1.10); GLUCOSE 148 MG/DL (70-104); MAGNESIUM 1.8 MG/DL (1.5-2.4); SODIUM 137 MMOL/L (135-145); TOTAL CARBON DIOXIDE 24.1 MMOL/L (24-32); eGFR 24 ML/MIN
[2018-04-30 23:38] LABS: ALBUMIN/GLOBULIN RATIO 0.8 (1.1-1.5); TOTAL PROTEIN 4.8 G/DL (6.4-8.2)
[2018-04-30 23:39] LABS: PARTIAL THROMBOPLASTIN TIME 29 SECONDS (22-32); PROTHROMBIN TIME 19.3 SECONDS (9.0-12.0)
[2018-05-01] VITALS (29 sets, daily range): BP systolic 67–132; BP diastolic 35–79
[2018-05-01 00:05] LABS: ANISOCYTOSIS 3+; PLATELET ESTIMATE DECREASED; TOTAL CELLS COUNTED 100
[2018-05-01 00:06] LABS: ACANTHOCYTES 2+; BURR CELLS 2+; POLYCHROMASIA FEW; SCHISTOCYTES FEW; TARGET CELLS FEW
[2018-05-01] MEDS ORDERED: ondansetron/PF 4mg/2ml inj IV PRN (00:35)
[2018-05-01] MEDS ORDERED: HYDROcodone/acetaminophen 5mg/325mg tablet PO PRN (00:35)
[2018-05-01] MEDS ORDERED: mag hydrox/Alum hydrox/simeth 30ml oral suspension PO PRN (00:35)
[2018-05-01] MEDS: potassium Cl 20mEq in NS 1,000 ML IV SCH ×2 (00:35→09:44)
[2018-05-01] MEDS ORDERED: metoclopramide 5 mg/ml inj IV PRN (00:35)
[2018-05-01] MEDS ORDERED: morphine 2 MG/ML inj. syringe IV PRN (00:35)
[2018-05-01] MEDS ORDERED: bisacodyl 10mg suppository rectal RC PRN (00:35)
[2018-05-01] MEDS ORDERED: diphenhydrAMINE 50 mg/ml inj IV PRN (00:35)
[2018-05-01] MEDS ORDERED: diphenhydrAMINE 25mg capsule PO PRN (00:35)
[2018-05-01] MEDS ORDERED: acetaminophen 325mg tablet PO PRN ×2 (00:35)
[2018-05-01] MEDS ORDERED: acetaminophen 650mg rectal suppository RC PRN (00:35)
[2018-05-01] MEDS ORDERED: magnesium hydroxide 30ml (MOM) UD suspension PO PRN (00:35)
[2018-05-01] MEDS ORDERED: HYDROmorphone 1 mg/ml syringe IV PRN (00:35)
[2018-05-01] MEDS ORDERED: MESSAGE TO PHARMACY PO ONE (00:40)
[2018-05-01] MEDS ORDERED: glucagon, human recombinant 1mg kit SUBCUT PRN (00:40)
[2018-05-01] MEDS ORDERED: azithromycin/NS 500mg/250ml 250 ML IV ONE (00:40)
[2018-05-01] MEDS ORDERED: dextrose 50%-water 50ml dispensing syringe IV PRN ×2 (00:40)
[2018-05-01] MEDS ORDERED: dextrose ORAL solution 15 GM/59 ML bottle PO PRN (00:40)
[2018-05-01] MEDS ORDERED: phytonadione inj. 3 MG in normal saline 100ml IV soln 99.7 ML IV ONE (00:40)
[2018-05-01] MEDS ORDERED: CefTRIAXone 2gm/D5W 50ml 50 ML IV ONE (00:40)
[2018-05-01] MEDS ORDERED: tranexamic acid inj. 750 MG in normal saline 100ml IV soln 92.5 ML IV ONE (01:45)
[2018-05-01] MEDS ORDERED: digoxin 250mcg/ml 2ml ampule IV ONE (01:50)
[2018-05-01 02:41] LABS: ABG BASE EXCESS -1.6 mmol/L (-2.0-3.0); ABG HCO3 23.2 mmol/L (22.0-26.0); ABG OXYGEN SATURATION 86.2 % (95-98); ABG PCO2 (T) 35.3 mmHg (35.0-48.0); ABG PH (T) 7.425 (7.350-7.450); ABG PO2 (T) 43.5 mmHg (83-108); ALLEN'S TEST Positive; FCOHb 1.6 % (0.5-1.5); FLOW 3 L/min; FMetHb 0.3 % (0.3-1.12); FO2Hb 84.6 % (94-100); PATIENT TEMPERATURE 34.4; TOTAL HEMOGLOBIN 7.5 G/dl (14.0-18.0)
[2018-05-01 03:50] LABS: LIPASE 95 U/L (73-393)
[2018-05-01 03:56] LABS: ABG BASE EXCESS -3.3 mmol/L (-2.0-3.0); ABG HCO3 21.5 mmol/L (22.0-26.0); ABG OXYGEN SATURATION 98.5 % (95-98); ABG PCO2 (T) 36.9 mmHg (35.0-48.0); ABG PH (T) 7.382 (7.350-7.450); ABG PO2 (T) 182.1 mmHg (83-108); ALLEN'S TEST Positive; FCOHb 1.2 % (0.5-1.5); FLOW 15 L/min; FMetHb 0.3 % (0.3-1.12); PATIENT TEMPERATURE 36.6; TOTAL HEMOGLOBIN 7.4 G/dl (14.0-18.0)
[2018-05-01] MEDS ORDERED: albumin (human) 25% 100ml IV 100 ML IV ONE ×2 (04:05)
[2018-05-01 04:29] LABS: OCCULT BLOOD STOOL POSITIVE (Neg)
[2018-05-01] MEDS ORDERED: magnesium Cl slow-release 64mg tablet PO PRN (06:50)
[2018-05-01] MEDS ORDERED: potassium Cl 40MEQ/NS 500ml 500 ML IV PRN (06:50)
[2018-05-01] MEDS ORDERED: magnesium 4gm in 100ml NS 100 ML IV PRN (06:50)
[2018-05-01] MEDS ORDERED: potassium Cl 20 mEq SR tablet PO PRN ×2 (06:50)
[2018-05-01] MEDS: potassium Cl 40MEQ/NS 500ml 500 ML IV PRN ×2 (07:21→11:33)
[2018-05-01] MEDS: pantoprazole 40 MG vial IV SCH ×2 (07:47→20:12)
[2018-05-01] MEDS: hydrocortisone sod succ/PF 100mg/2ml inj. IV SCH ×2 (07:47→15:45)
[2018-05-01] MEDS: CefTRIAXone/D5W-Rocephin 1gm 50 ML IV SCH (07:48)
[2018-05-01] MEDS: amiodarone 200mg tablet PO SCH (07:51)
[2018-05-01] MEDS: sertraline 50mg tablet PO SCH (07:51)
[2018-05-01] MEDS: docusate sod 100mg capsule PO SCH ×2 (07:52→19:42)
[2018-05-01 11:11] LABS: CLARITY,URINE CLOUDY (Clear); COLOR,URINE AMBER (Yellow); GLUCOSE, URINE NEGATIVE (Neg); KETONES,URINE TRACE mg/dl (Neg); LEUKOCYTE ESTERASE ,URINE NEGATIVE (Neg); NITRITES, URINE NEGATIVE (Neg); OCCULT BLOOD,URINE LARGE (Neg); PROTEIN,URINE 30 mg/dl (Neg)
[2018-05-01 11:28] LABS: SODIUM,URINE RANDOM < 15 MEQ/L; UA COLLECTION TYPE NON-SPECIFIED
[2018-05-01 11:55] LABS: BACTERIA,URINE FEW /HPF (Neg); OSMOLALITY UA 311 MOSM/K (50-1400); RBC,URINE 20-50 /HPF (0-2); WBC,URINE 0-4 /HPF (0-4)
[2018-05-01 11:56] LABS: COARSE GRANULAR CAST 0-3 /LPF (NEGATIVE); MUCUS STRANDS NONE SEEN /LPF (Neg); SQUAMOUS EPITHELIAL CELL,UR FEW /LPF (FEW); TRANSITIONAL EPI CELLS,URINE FEW /HPF
[2018-05-01] MEDS ORDERED: fentaNYL/PF 50MCG/1 ML 2ML syringe ONE (12:44)
[2018-05-01] MEDS ORDERED: MIDAZolam 5mg/5ml vial ONE (12:45)
[2018-05-01] MEDS ORDERED: LIDOcaine Viscous 15ml cup ONE (12:45)
[2018-05-01] MEDS ORDERED: furosemide 40mg/4ml inj IV ONE (14:20)
[2018-05-01] MEDS: piperacillin/tazo 3.375gm/50ml 50 ML IV SCH (15:45)
[2018-05-01] MEDS: albumin (human) 25% 100ml IV 100 ML IV SCH (15:47)
[2018-05-01 19:45] LABS: BASOPHILS % (AUTO) 0.2 % (0-1); EOSINOPHILS % (AUTO) 0 % (0-6); HEMATOCRIT 22.3 % (42.0-52.0); HEMOGLOBIN 7.3 g/dl (14.0-17.9); LYMPHOCYTES # (AUTO) 0.2 X10'3 (1.1-4.8); LYMPHOCYTES % (AUTO) 2.4 % (21-51); MEAN CORPUSCULAR HEMOGLOBIN 32.5 PG (27.0-31.0); MEAN CORPUSCULAR HGB CONC 32.8 % (33.0-36.5); MEAN CORPUSCULAR VOLUME 99.3 FL (78-98); MEAN PLATELET VOLUME 9.7 FL (7.4-10.4); MONOCYTES # (AUTO) 0.2 X10'3 (0-0.9); MONOCYTES % (AUTO) 2.3 % (2-12); NEUTROPHILS # (AUTO) 7.7 X10'3 (1.8-7.7); NEUTROPHILS % (AUTO) 95.1 % (42-75); PLATELET COUNT 51 X10'3 (140-440); RED BLOOD COUNT 2.25 X10'6 (4.70-6.10); RED CELL DISTRIBUTION WIDTH 24.7 % (11.5-14.5); WHITE BLOOD COUNT 8.1 X10'3 (4.5-11.0)
[2018-05-01] MEDS: furosemide 40mg/4ml inj IV SCH (20:12)
[2018-05-01] MEDS ORDERED: temazepam 15mg capsule PO PRN (21:00)
[2018-05-01] MEDS ORDERED: [UNRECOGNIZED DRUG - OTHER] NS SCH (21:00)
[2018-05-01] MEDS ORDERED: OXYGEN NS SCH (21:00)
[2018-05-01 21:47] LABS: PLATELET ESTIMATE DECREASED; TOTAL CELLS COUNTED 100
[2018-05-01 21:48] LABS: ANISOCYTOSIS 3+
[2018-05-01 21:51] LABS: ACANTHOCYTES 2+; BURR CELLS 2+
[2018-05-01] MEDS: tolterodine 2mg SR capsule (24hr) PO SCH (22:18)
[2018-05-01] MEDS: terazosin 5mg capsule PO SCH (22:19)
[2018-05-02] VITALS (36 sets, daily range): BP systolic 100–149; BP diastolic 57–98
[2018-05-02] MEDS: piperacillin/tazo 3.375gm/50ml 50 ML IV SCH ×3 (00:01→15:14)
[2018-05-02] MEDS: hydrocortisone sod succ/PF 100mg/2ml inj. IV SCH ×3 (00:01→16:22)
[2018-05-02] MEDS: albumin (human) 25% 100ml IV 100 ML IV SCH ×3 (00:02→16:22)
[2018-05-02 05:30] LABS: BASOPHILS % (AUTO) 0 % (0-1); EOSINOPHILS % (AUTO) 0 % (0-6); LYMPHOCYTES # (AUTO) 0.1 X10'3 (1.1-4.8); MEAN CORPUSCULAR HEMOGLOBIN 33.2 PG (27.0-31.0); MEAN CORPUSCULAR HGB CONC 33.8 % (33.0-36.5); MEAN CORPUSCULAR VOLUME 98.3 FL (78-98); MEAN PLATELET VOLUME 9.6 FL (7.4-10.4); MONOCYTES # (AUTO) 0.2 X10'3 (0-0.9); MONOCYTES % (AUTO) 2.7 % (2-12); NEUTROPHILS # (AUTO) 7.1 X10'3 (1.8-7.7); NEUTROPHILS % (AUTO) 95.3 % (42-75); RED BLOOD COUNT 2.02 X10'6 (4.70-6.10); RED CELL DISTRIBUTION WIDTH 23.3 % (11.5-14.5); WHITE BLOOD COUNT 7.4 X10'3 (4.5-11.0)
[2018-05-02 05:44] LABS: ALANINE AMINOTRANSFERASE 139 U/L (12-78); ALBUMIN 2.7 G/DL (3.4-5.0); ALKALINE PHOSPHATASE 239 IU/L (46-116); ANION GAP 11 (8-16); ASPARTATE AMINO TRANSFERASE 137 U/L (10-37); BILIRUBIN,TOTAL 5.4 MG/DL (0.1-1.0); BLOOD UREA NITROGEN 66 MG/DL (7-18); BUN/CREATININE RATIO 18.6 (5.4-32.0); CALCIUM 8.3 MG/DL (8.5-10.1); CHLORIDE 103 MMOL/L (99-107); CREATININE 3.55 MG/DL (0.60-1.10); GLUCOSE 187 MG/DL (70-104); POTASSIUM 4.2 MMOL/L (3.5-5.1); SODIUM 139 MMOL/L (135-145); TOTAL CARBON DIOXIDE 24.6 MMOL/L (24-32); eGFR 16 ML/MIN
[2018-05-02 06:20] LABS: ALBUMIN/GLOBULIN RATIO 1.1 (1.1-1.5); TOTAL PROTEIN 5.2 G/DL (6.4-8.2)
[2018-05-02 06:33] LABS: HEMATOCRIT 19.8 % (42.0-52.0); HEMOGLOBIN 6.7 g/dl (14.0-17.9)
[2018-05-02 06:34] LABS: PLATELET COUNT 40 X10'3 (140-440)
[2018-05-02] MEDS: docusate sod 100mg capsule PO SCH ×2 (07:31→19:56)
[2018-05-02] MEDS: pantoprazole 40 MG vial IV SCH ×2 (08:19→20:03)
[2018-05-02] MEDS: sertraline 50mg tablet PO SCH (08:29)
[2018-05-02] MEDS: CefTRIAXone/D5W-Rocephin 1gm 50 ML IV SCH (08:29)
[2018-05-02] MEDS: amiodarone 200mg tablet PO SCH (08:29)
[2018-05-02] MEDS: insulin Lispro (HumaLOG) vial - multi-dose SQ SCH ×3 (09:05→20:08)
[2018-05-02 10:25] LABS: ANISOCYTOSIS 3+; PLATELET ESTIMATE DECREASED; TOTAL CELLS COUNTED 100
[2018-05-02 10:26] LABS: ACANTHOCYTES 1+; BURR CELLS 2+; TEAR DROP CELLS FEW
[2018-05-02] MEDS ORDERED: furosemide 10 MG/1 ML 10ml inj IV ONE (11:25)
[2018-05-02 12:11] LABS: ABG BASE EXCESS -3.8 mmol/L (-2.0-3.0); ABG HCO3 21.7 mmol/L (22.0-26.0); ABG OXYGEN SATURATION 94.6 % (95-98); ABG PCO2 (T) 41.5 mmHg (35.0-48.0); ABG PH (T) 7.337 (7.350-7.450); ABG PO2 (T) 76.4 mmHg (83-108); ALLEN'S TEST Positive; FCOHb 0.9 % (0.5-1.5); FLOW 4 L/min; FMetHb 0.3 % (0.3-1.12); FO2Hb 93.5 % (94-100); RESPIRATORY RATE (OBSERVED) 20 b/min; TOTAL HEMOGLOBIN 8.9 G/dl (14.0-18.0)
[2018-05-02] MEDS ORDERED: heparin sodium, porcine/PF 100unit/ml 5ML syringe ONE (12:21)
[2018-05-02] MEDS: furosemide 40mg/4ml inj IV SCH ×2 (12:23→17:53)
[2018-05-02 16:20] LABS: BASOPHILS % (AUTO) 0 % (0-1); EOSINOPHILS % (AUTO) 0 % (0-6); HEMATOCRIT 25.8 % (42.0-52.0); HEMOGLOBIN 8.7 g/dl (14.0-17.9); LYMPHOCYTES # (AUTO) 0.2 X10'3 (1.1-4.8); LYMPHOCYTES % (AUTO) 1.7 % (21-51); MEAN CORPUSCULAR HGB CONC 33.6 % (33.0-36.5); MEAN CORPUSCULAR VOLUME 95.2 FL (78-98); MEAN PLATELET VOLUME 9.4 FL (7.4-10.4); MONOCYTES # (AUTO) 0.2 X10'3 (0-0.9); MONOCYTES % (AUTO) 2.5 % (2-12); NEUTROPHILS # (AUTO) 8.6 X10'3 (1.8-7.7); NEUTROPHILS % (AUTO) 95.8 % (42-75); PLATELET COUNT 62 X10'3 (140-440); RED BLOOD COUNT 2.71 X10'6 (4.70-6.10); RED CELL DISTRIBUTION WIDTH 23.2 % (11.5-14.5)
[2018-05-02] MEDS: terazosin 5mg capsule PO SCH (20:03)
[2018-05-02] MEDS: tolterodine 2mg SR capsule (24hr) PO SCH (20:03)
[2018-05-03] VITALS (28 sets, daily range): BP systolic 119–156; BP diastolic 76–99
[2018-05-03] MEDS: hydrocortisone sod succ/PF 100mg/2ml inj. IV SCH ×3 (00:20→15:15)
[2018-05-03] MEDS: furosemide 40mg/4ml inj IV SCH ×3 (00:20→15:15)
[2018-05-03] MEDS: piperacillin/tazo 3.375gm/50ml 50 ML IV SCH ×3 (00:21→15:15)
[2018-05-03] MEDS: albumin (human) 25% 100ml IV 100 ML IV SCH ×3 (00:22→15:17)
[2018-05-03 05:24] LABS: BASOPHILS % (AUTO) 0.1 % (0-1); EOSINOPHILS % (AUTO) 0 % (0-6); HEMATOCRIT 24.3 % (42.0-52.0); HEMOGLOBIN 8.2 g/dl (14.0-17.9); LYMPHOCYTES # (AUTO) 0.2 X10'3 (1.1-4.8); LYMPHOCYTES % (AUTO) 2.4 % (21-51); MEAN CORPUSCULAR HEMOGLOBIN 32.1 PG (27.0-31.0); MEAN CORPUSCULAR HGB CONC 33.9 % (33.0-36.5); MEAN CORPUSCULAR VOLUME 94.8 FL (78-98); MEAN PLATELET VOLUME 9.8 FL (7.4-10.4); MONOCYTES # (AUTO) 0.1 X10'3 (0-0.9); NEUTROPHILS # (AUTO) 7.1 X10'3 (1.8-7.7); NEUTROPHILS % (AUTO) 95.5 % (42-75); RED BLOOD COUNT 2.57 X10'6 (4.70-6.10); RED CELL DISTRIBUTION WIDTH 22.5 % (11.5-14.5); WHITE BLOOD COUNT 7.4 X10'3 (4.5-11.0)
[2018-05-03 05:41] LABS: ALANINE AMINOTRANSFERASE 112 U/L (12-78); ALBUMIN 3.1 G/DL (3.4-5.0); ALKALINE PHOSPHATASE 253 IU/L (46-116); ANION GAP 16 (8-16); ASPARTATE AMINO TRANSFERASE 83 U/L (10-37); BLOOD UREA NITROGEN 72 MG/DL (7-18); BUN/CREATININE RATIO 19.4 (5.4-32.0); CALCIUM 8.4 MG/DL (8.5-10.1); CHLORIDE 102 MMOL/L (99-107); CREATININE 3.71 MG/DL (0.60-1.10); GLUCOSE 216 MG/DL (70-104); POTASSIUM 3.1 MMOL/L (3.5-5.1); SODIUM 141 MMOL/L (135-145); TOTAL CARBON DIOXIDE 22.8 MMOL/L (24-32); eGFR 16 ML/MIN
[2018-05-03 05:51] LABS: ALBUMIN/GLOBULIN RATIO 1.4 (1.1-1.5); TOTAL PROTEIN 5.3 G/DL (6.4-8.2)
[2018-05-03 06:38] LABS: PLATELET COUNT 45 X10'3 (140-440)
[2018-05-03 06:59] LABS: ANISOCYTOSIS 3+; PLATELET ESTIMATE DECREASED; TOTAL CELLS COUNTED 100
[2018-05-03 07:00] LABS: BURR CELLS 2+; SCHISTOCYTES 1+; TOXIC GRANULATION 3+
[2018-05-03] MEDS: CefTRIAXone/D5W-Rocephin 1gm 50 ML IV SCH (08:04)
[2018-05-03] MEDS: amiodarone 200mg tablet PO SCH (08:04)
[2018-05-03] MEDS: docusate sod 100mg capsule PO SCH ×2 (08:05→20:22)
[2018-05-03] MEDS: pantoprazole 40 MG vial IV SCH ×2 (08:05→20:22)
[2018-05-03] MEDS: sertraline 50mg tablet PO SCH (08:05)
[2018-05-03] MEDS ORDERED: diphenhydrAMINE 25mg capsule PO ONE (10:40)
[2018-05-03] MEDS: insulin Lispro (HumaLOG) vial - multi-dose SQ SCH ×2 (10:42→14:21)
[2018-05-03] MEDS: terazosin 5mg capsule PO SCH (20:22)
[2018-05-03] MEDS: tolterodine 2mg SR capsule (24hr) PO SCH (20:22)
[2018-05-03] MEDS: lactobacillus rhamnosus 10,000 MMU CELLS/CAPSULE PO SCH (20:22)
[2018-05-04] VITALS (20 sets, daily range): BP systolic 99–150; BP diastolic 57–100
[2018-05-04] MEDS: hydrocortisone sod succ/PF 100mg/2ml inj. IV SCH ×3 (00:30→15:48)
[2018-05-04] MEDS: albumin (human) 25% 100ml IV 100 ML IV SCH ×3 (00:30→15:49)
[2018-05-04] MEDS: piperacillin/tazo 3.375gm/50ml 50 ML IV SCH ×3 (00:30→15:49)
[2018-05-04] MEDS: furosemide 40mg/4ml inj IV SCH ×3 (00:30→15:48)
[2018-05-04 05:28] LABS: BASOPHILS % (AUTO) 0 % (0-1); EOSINOPHILS # (AUTO) 0.1 X10'3 (0-0.9); EOSINOPHILS % (AUTO) 0.8 % (0-6); HEMATOCRIT 26.3 % (42.0-52.0); HEMOGLOBIN 8.8 g/dl (14.0-17.9); LYMPHOCYTES # (AUTO) 0.3 X10'3 (1.1-4.8); LYMPHOCYTES % (AUTO) 3.8 % (21-51); MEAN CORPUSCULAR HEMOGLOBIN 31.6 PG (27.0-31.0); MEAN CORPUSCULAR HGB CONC 33.4 % (33.0-36.5); MEAN CORPUSCULAR VOLUME 94.7 FL (78-98); MEAN PLATELET VOLUME 9.9 FL (7.4-10.4); MONOCYTES # (AUTO) 0.2 X10'3 (0-0.9); MONOCYTES % (AUTO) 2.6 % (2-12); NEUTROPHILS # (AUTO) 6.6 X10'3 (1.8-7.7); NEUTROPHILS % (AUTO) 92.8 % (42-75); RED BLOOD COUNT 2.77 X10'6 (4.70-6.10); RED CELL DISTRIBUTION WIDTH 22.4 % (11.5-14.5); WHITE BLOOD COUNT 7.1 X10'3 (4.5-11.0)
[2018-05-04 05:39] LABS: PLATELET COUNT 48 X10'3 (140-440)
[2018-05-04 05:50] LABS: ALANINE AMINOTRANSFERASE 93 U/L (12-78); ALBUMIN 3.2 G/DL (3.4-5.0); ALKALINE PHOSPHATASE 252 IU/L (46-116); ANION GAP 18 (8-16); ASPARTATE AMINO TRANSFERASE 51 U/L (10-37); BILIRUBIN,TOTAL 3.7 MG/DL (0.1-1.0); BLOOD UREA NITROGEN 80 MG/DL (7-18); BUN/CREATININE RATIO 19.5 (5.4-32.0); CALCIUM 8.5 MG/DL (8.5-10.1); CHLORIDE 100 MMOL/L (99-107); GLUCOSE 240 MG/DL (70-104); SODIUM 141 MMOL/L (135-145); TOTAL CARBON DIOXIDE 23.4 MMOL/L (24-32); eGFR 14 ML/MIN
[2018-05-04 05:55] LABS: ALBUMIN/GLOBULIN RATIO 1.3 (1.1-1.5); TOTAL PROTEIN 5.6 G/DL (6.4-8.2)
[2018-05-04 05:59] LABS: POTASSIUM 2.5 MMOL/L (3.5-5.1)
[2018-05-04 06:42] LABS: ANISOCYTOSIS 3+; BURR CELLS 1+; PLATELET ESTIMATE DECREASED
[2018-05-04 06:43] LABS: MICROCYTOSIS 1+; SCHISTOCYTES 1+
[2018-05-04] MEDS: potassium Cl 40MEQ/NS 500ml 500 ML IV PRN ×3 (07:51→22:42)
[2018-05-04] MEDS: lactobacillus rhamnosus 10,000 MMU CELLS/CAPSULE PO SCH ×2 (08:11→21:50)
[2018-05-04] MEDS: docusate sod 100mg capsule PO SCH ×2 (08:12→21:50)
[2018-05-04] MEDS: amiodarone 200mg tablet PO SCH (08:12)
[2018-05-04] MEDS: pantoprazole 40 MG vial IV SCH (08:12)
[2018-05-04] MEDS: sertraline 50mg tablet PO SCH (08:12)
[2018-05-04] MEDS: CefTRIAXone/D5W-Rocephin 1gm 50 ML IV SCH (08:29)
[2018-05-04] MEDS: insulin Lispro (HumaLOG) vial - multi-dose SQ SCH ×3 (08:51→19:48)
[2018-05-04] MEDS: terazosin 5mg capsule PO SCH (21:50)
[2018-05-04] MEDS: pantoprazole 40mg Tablet.DR PO SCH (21:50)
[2018-05-04] MEDS: tolterodine 2mg SR capsule (24hr) PO SCH (22:42)
[2018-05-05] VITALS (7 sets, daily range): BP systolic 111–160; BP diastolic 56–93
[2018-05-05] MEDS: hydrocortisone sod succ/PF 100mg/2ml inj. IV SCH ×3 (00:25→16:24)
[2018-05-05] MEDS: furosemide 40mg/4ml inj IV SCH ×3 (00:26→16:24)
[2018-05-05] MEDS: piperacillin/tazo 3.375gm/50ml 50 ML IV SCH ×3 (00:28→16:24)
[2018-05-05] MEDS: albumin (human) 25% 100ml IV 100 ML IV SCH ×2 (00:29→08:00)
[2018-05-05] MEDS: potassium Cl 40MEQ/NS 500ml 500 ML IV PRN (01:46)
[2018-05-05 04:57] LABS: BASOPHILS % (AUTO) 0 % (0-1); EOSINOPHILS % (AUTO) 0 % (0-6); LYMPHOCYTES # (AUTO) 0.2 X10'3 (1.1-4.8); LYMPHOCYTES % (AUTO) 3.9 % (21-51); MEAN CORPUSCULAR HEMOGLOBIN 31.5 PG (27.0-31.0); MEAN CORPUSCULAR HGB CONC 33.3 % (33.0-36.5); MEAN CORPUSCULAR VOLUME 94.8 FL (78-98); MONOCYTES # (AUTO) 0.2 X10'3 (0-0.9); NEUTROPHILS % (AUTO) 93.1 % (42-75); RED BLOOD COUNT 2.53 X10'6 (4.70-6.10); RED CELL DISTRIBUTION WIDTH 22.5 % (11.5-14.5); WHITE BLOOD COUNT 5.4 X10'3 (4.5-11.0)
[2018-05-05 05:19] LABS: ALANINE AMINOTRANSFERASE 88 U/L (12-78); ALBUMIN 3.3 G/DL (3.4-5.0); ALBUMIN/GLOBULIN RATIO 1.4 (1.1-1.5); ALKALINE PHOSPHATASE 242 IU/L (46-116); ANION GAP 15 (8-16); ASPARTATE AMINO TRANSFERASE 47 U/L (10-37); BILIRUBIN,TOTAL 2.8 MG/DL (0.1-1.0); BLOOD UREA NITROGEN 91 MG/DL (7-18); BUN/CREATININE RATIO 20.3 (5.4-32.0); CHLORIDE 103 MMOL/L (99-107); CREATININE 4.49 MG/DL (0.60-1.10); GLUCOSE 199 MG/DL (70-104); POTASSIUM 3.2 MMOL/L (3.5-5.1); SODIUM 142 MMOL/L (135-145); TOTAL CARBON DIOXIDE 24.5 MMOL/L (24-32); TOTAL PROTEIN 5.7 G/DL (6.4-8.2); eGFR 12 ML/MIN
[2018-05-05 05:33] LABS: PLATELET COUNT 36 X10'3 (140-440)
[2018-05-05 05:34] LABS: ANISOCYTOSIS 3+; MICROCYTOSIS 1+; PLATELET ESTIMATE DECREASED
[2018-05-05] MEDS: docusate sod 100mg capsule PO SCH ×2 (08:00→19:26)
[2018-05-05] MEDS: amiodarone 200mg tablet PO SCH (08:00)
[2018-05-05] MEDS: lactobacillus rhamnosus 10,000 MMU CELLS/CAPSULE PO SCH ×2 (08:00→20:01)
[2018-05-05] MEDS: sertraline 50mg tablet PO SCH (08:00)
[2018-05-05] MEDS: pantoprazole 40mg Tablet.DR PO SCH ×2 (08:00→20:01)
[2018-05-05] MEDS: CefTRIAXone/D5W-Rocephin 1gm 50 ML IV SCH (08:00)
[2018-05-05] MEDS: insulin Lispro (HumaLOG) vial - multi-dose SQ SCH ×2 (09:46→13:05)
[2018-05-05] MEDS: terazosin 5mg capsule PO SCH (20:01)
[2018-05-05] MEDS: tolterodine 2mg SR capsule (24hr) PO SCH (20:02)
[2018-05-05] MEDS: potassium Cl 20 mEq SR tablet PO PRN (20:06)
[2018-05-05] MEDS: insulin glargine (Lantus) pen - multi-dose SQ SCH (21:28)
[2018-05-06] MEDS: hydrocortisone sod succ/PF 100mg/2ml inj. IV SCH ×3 (00:16→20:47)
[2018-05-06] MEDS: piperacillin/tazo 3.375gm/50ml 50 ML IV SCH ×4 (00:16→23:58)
[2018-05-06] MEDS: furosemide 40mg/4ml inj IV SCH ×3 (00:17→20:47)
[2018-05-06] MEDS: potassium Cl 20 mEq SR tablet PO PRN ×4 (00:27→20:46)
[2018-05-06 03:00] VITALS: BP 158/79
[2018-05-06] MEDS ORDERED: loperamide 2mg capsule PO PRN (04:10)
[2018-05-06 05:13] LABS: BASOPHILS % (AUTO) 0 % (0-1); EOSINOPHILS % (AUTO) 0 % (0-6); HEMATOCRIT 24.2 % (42.0-52.0); HEMOGLOBIN 8.1 g/dl (14.0-17.9); LYMPHOCYTES # (AUTO) 0.2 X10'3 (1.1-4.8); LYMPHOCYTES % (AUTO) 4.8 % (21-51); MEAN CORPUSCULAR HEMOGLOBIN 31.8 PG (27.0-31.0); MEAN CORPUSCULAR HGB CONC 33.4 % (33.0-36.5); MEAN PLATELET VOLUME 9.4 FL (7.4-10.4); MONOCYTES # (AUTO) 0.1 X10'3 (0-0.9); MONOCYTES % (AUTO) 1.7 % (2-12); NEUTROPHILS # (AUTO) 4.7 X10'3 (1.8-7.7); NEUTROPHILS % (AUTO) 93.5 % (42-75); RED BLOOD COUNT 2.54 X10'6 (4.70-6.10); RED CELL DISTRIBUTION WIDTH 23.2 % (11.5-14.5)
[2018-05-06 05:29] LABS: PLATELET COUNT 36 X10'3 (140-440)
[2018-05-06 05:37] LABS: ALANINE AMINOTRANSFERASE 82 U/L (12-78); ALBUMIN 3.4 G/DL (3.4-5.0); ALBUMIN/GLOBULIN RATIO 1.4 (1.1-1.5); ALKALINE PHOSPHATASE 208 IU/L (46-116); ANION GAP 17 (8-16); ASPARTATE AMINO TRANSFERASE 38 U/L (10-37); BILIRUBIN,TOTAL 2.5 MG/DL (0.1-1.0); BLOOD UREA NITROGEN 106 MG/DL (7-18); BUN/CREATININE RATIO 21.2 (5.4-32.0); CALCIUM 9.2 MG/DL (8.5-10.1); CHLORIDE 102 MMOL/L (99-107); CREATININE 4.99 MG/DL (0.60-1.10); GLUCOSE 203 MG/DL (70-104); SODIUM 144 MMOL/L (135-145); TOTAL PROTEIN 5.8 G/DL (6.4-8.2); eGFR 11 ML/MIN
[2018-05-06 06:00] VITALS: BP 148/88
[2018-05-06 06:06] LABS: POTASSIUM 2.8 MMOL/L (3.5-5.1)
[2018-05-06] MEDS: albumin (human) 25% 100ml IV 100 ML IV SCH ×2 (07:23)
[2018-05-06] MEDS: docusate sod 100mg capsule PO SCH ×2 (08:00→18:57)
[2018-05-06] MEDS: CefTRIAXone/D5W-Rocephin 1gm 50 ML IV SCH (08:00)
[2018-05-06] MEDS: pantoprazole 40mg Tablet.DR PO SCH ×2 (08:00→20:46)
[2018-05-06] MEDS: sertraline 50mg tablet PO SCH (08:00)
[2018-05-06] MEDS: lactobacillus rhamnosus 10,000 MMU CELLS/CAPSULE PO SCH ×2 (09:12→20:46)
[2018-05-06] MEDS: amiodarone 200mg tablet PO SCH (09:12)
[2018-05-06] MEDS: insulin Lispro (HumaLOG) vial - multi-dose SQ SCH ×2 (10:49→18:48)
[2018-05-06 11:00] VITALS: BP 121/74
[2018-05-06 15:00] VITALS: BP 129/73
[2018-05-06 19:00] VITALS: BP 139/78
[2018-05-06] MEDS: terazosin 5mg capsule PO SCH (20:46)
[2018-05-06] MEDS: tolterodine 2mg SR capsule (24hr) PO SCH (20:55)
[2018-05-06] MEDS: insulin glargine (Lantus) pen - multi-dose SQ SCH (21:26)
[2018-05-06 22:59] VITALS: BP 126/56
[2018-05-07] VITALS (7 sets, daily range): BP systolic 104–146; BP diastolic 43–68
[2018-05-07 07:10] LABS: BASOPHILS % (AUTO) 0.1 % (0-1); EOSINOPHILS % (AUTO) 0 % (0-6); HEMATOCRIT 24.9 % (42.0-52.0); HEMOGLOBIN 8.3 g/dl (14.0-17.9); LYMPHOCYTES # (AUTO) 0.3 X10'3 (1.1-4.8); LYMPHOCYTES % (AUTO) 5.9 % (21-51); MEAN CORPUSCULAR HEMOGLOBIN 31.7 PG (27.0-31.0); MEAN CORPUSCULAR HGB CONC 33.4 % (33.0-36.5); MEAN CORPUSCULAR VOLUME 94.8 FL (78-98); MEAN PLATELET VOLUME 9.1 FL (7.4-10.4); MONOCYTES # (AUTO) 0.2 X10'3 (0-0.9); MONOCYTES % (AUTO) 3.3 % (2-12); NEUTROPHILS # (AUTO) 5.3 X10'3 (1.8-7.7); NEUTROPHILS % (AUTO) 90.7 % (42-75); RED BLOOD COUNT 2.63 X10'6 (4.70-6.10); RED CELL DISTRIBUTION WIDTH 22.6 % (11.5-14.5); WHITE BLOOD COUNT 5.8 X10'3 (4.5-11.0)
[2018-05-07 07:21] LABS: PLATELET COUNT 49 X10'3 (140-440)
[2018-05-07 07:23] LABS: ALANINE AMINOTRANSFERASE 76 U/L (12-78); ALBUMIN 3.1 G/DL (3.4-5.0); ALBUMIN/GLOBULIN RATIO 1.2 (1.1-1.5); ALKALINE PHOSPHATASE 200 IU/L (46-116); ANION GAP 15 (8-16); ASPARTATE AMINO TRANSFERASE 33 U/L (10-37); BILIRUBIN,TOTAL 2.2 MG/DL (0.1-1.0); BLOOD UREA NITROGEN 114 MG/DL (7-18); BUN/CREATININE RATIO 21.2 (5.4-32.0); CALCIUM 9.4 MG/DL (8.5-10.1); CHLORIDE 104 MMOL/L (99-107); CREATININE 5.38 MG/DL (0.60-1.10); GLUCOSE 218 MG/DL (70-104); POTASSIUM 3.1 MMOL/L (3.5-5.1); SODIUM 145 MMOL/L (135-145); TOTAL CARBON DIOXIDE 25.8 MMOL/L (24-32); TOTAL PROTEIN 5.7 G/DL (6.4-8.2); eGFR 10 ML/MIN
[2018-05-07] MEDS: docusate sod 100mg capsule PO SCH ×2 (08:00→20:03)
[2018-05-07 08:55] LABS: ANISOCYTOSIS 3+; PLATELET ESTIMATE DECREASED
[2018-05-07 08:56] LABS: ELLIPTOCYTES 1+; POIKILOCYTOSIS 1+
[2018-05-07] MEDS: lactobacillus rhamnosus 10,000 MMU CELLS/CAPSULE PO SCH ×2 (08:56→20:02)
[2018-05-07] MEDS: insulin Lispro (HumaLOG) vial - multi-dose SQ SCH ×3 (08:56→18:58)
[2018-05-07 08:58] LABS: BURR CELLS FEW; SCHISTOCYTES 1+
[2018-05-07] MEDS: amiodarone 200mg tablet PO SCH (09:05)
[2018-05-07] MEDS: CefTRIAXone/D5W-Rocephin 1gm 50 ML IV SCH (09:05)
[2018-05-07] MEDS: piperacillin/tazo 3.375gm/50ml 50 ML IV SCH ×3 (09:05→23:57)
[2018-05-07] MEDS: pantoprazole 40mg Tablet.DR PO SCH ×2 (09:06→20:03)
[2018-05-07] MEDS: sertraline 50mg tablet PO SCH (09:06)
[2018-05-07] MEDS: furosemide 40mg/4ml inj IV SCH (09:06)
[2018-05-07] MEDS: hydrocortisone sod succ/PF 100mg/2ml inj. IV SCH (09:06)
[2018-05-07] MEDS: potassium Cl 20 mEq SR tablet PO PRN ×3 (12:12→21:23)
[2018-05-07] MEDS: terazosin 5mg capsule PO SCH (20:02)
[2018-05-07] MEDS: tolterodine 2mg SR capsule (24hr) PO SCH (20:02)
[2018-05-07] MEDS: dextrose ORAL solution 15 GM/59 ML bottle PO PRN ×2 (21:08→21:30)
[2018-05-07] MEDS: insulin glargine (Lantus) pen - multi-dose SQ SCH (22:17)
[2018-05-08 02:00] VITALS: BP 113/52
[2018-05-08 02:19] VITALS: BP 113/52
[2018-05-08 06:00] VITALS: BP 129/56
[2018-05-08] MEDS: dextrose ORAL solution 15 GM/59 ML bottle PO PRN (07:16)
[2018-05-08] MEDS ORDERED: furosemide 40mg/4ml inj IV SCH (08:00)
[2018-05-08] MEDS ORDERED: hydrocortisone sod succ/PF 100mg/2ml inj. IV SCH (08:00)
[2018-05-08] MEDS: docusate sod 100mg capsule PO SCH (08:00)
[2018-05-08] MEDS: piperacillin/tazo 3.375gm/50ml 50 ML IV SCH ×2 (08:16→16:10)
[2018-05-08] MEDS: sertraline 50mg tablet PO SCH (08:17)
[2018-05-08] MEDS: amiodarone 200mg tablet PO SCH (08:17)
[2018-05-08] MEDS: lactobacillus rhamnosus 10,000 MMU CELLS/CAPSULE PO SCH (08:17)
[2018-05-08] MEDS: pantoprazole 40mg Tablet.DR PO SCH (08:17)
[2018-05-08] MEDS: potassium Cl 20 mEq SR tablet PO PRN (08:24)
[2018-05-08 12:44] VITALS: BP 138/54
[2018-05-08] MEDS: insulin Lispro (HumaLOG) vial - multi-dose SQ SCH ×2 (13:23→18:49)
[2018-05-08 15:57] VITALS: BP 113/54
== END 2018-05-08 19:15 | DRG 871 ==
LOC: ER 22:29 → ED HOLD 05-01 00:35 → ICU 2S 05-01 05:15 → PCU 3S 05-04 16:56
PROVIDERS: ADMIT Family Medicine
PROC: 0DJ08ZZ Inspection of Upper Intestinal Tract, Via Natural or Artificial Opening Endoscopic (ICD-10-PCS; principal; 2018-05-01)
PROC: 30233N1 Transfusion of Nonautologous Red Blood Cells into Peripheral Vein, Percutaneous Approach (ICD-10-PCS; 2018-05-01)
PROC: 30233L1 Transfusion of Nonautologous Fresh Plasma into Peripheral Vein, Percutaneous Approach (ICD-10-PCS; 2018-05-01)
PROC: 30233R1 Transfusion of Nonautologous Platelets into Peripheral Vein, Percutaneous Approach (ICD-10-PCS; 2018-05-01)
PROC: 30233K1 Transfusion of Nonautologous Frozen Plasma into Peripheral Vein, Percutaneous Approach (ICD-10-PCS; 2018-05-01)
PROC: 5A09357 Assistance with Respiratory Ventilation, Less than 24 Consecutive Hours, Continuous Positive Airway Pressure (ICD-10-PCS; 2018-05-02)
PROC: 30233N1 Transfusion of Nonautologous Red Blood Cells into Peripheral Vein, Percutaneous Approach (ICD-10-PCS; 2018-05-02)
PROC: 30233R1 Transfusion of Nonautologous Platelets into Peripheral Vein, Percutaneous Approach (ICD-10-PCS; 2018-05-02)
PROC: CD171ZZ Planar Nuclear Medicine Imaging of Gastrointestinal Tract using Technetium 99m (Tc-99m) (ICD-10-PCS; 2018-05-02)
PROC: 5A09357 Assistance with Respiratory Ventilation, Less than 24 Consecutive Hours, Continuous Positive Airway Pressure (ICD-10-PCS; 2018-05-03)
PROC: 30233R1 Transfusion of Nonautologous Platelets into Peripheral Vein, Percutaneous Approach (ICD-10-PCS; 2018-05-03)
PROC: 5A09457 Assistance with Respiratory Ventilation, 24-96 Consecutive Hours, Continuous Positive Airway Pressure (ICD-10-PCS; 2018-05-04)
PROC: 5A09357 Assistance with Respiratory Ventilation, Less than 24 Consecutive Hours, Continuous Positive Airway Pressure (ICD-10-PCS; 2018-05-08)
DX: A41.9 Sepsis, unspecified organism (principal); I50.33 Acute on chronic diastolic (congestive) heart failure; K76.7 Hepatorenal syndrome; J96.21 Acute and chronic respiratory failure with hypoxia; J69.0 Pneumonitis due to inhalation of food and vomit; D61.818 Other pancytopenia; D68.9 Coagulation defect, unspecified; E87.2 Acidosis; I13.0 Hypertensive heart and chronic kidney disease with heart failure and stage 1 through stage 4 chronic kidney disease, or unspecified chronic kidney disease; J44.1 Chronic obstructive pulmonary disease with (acute) exacerbation; N17.9 Acute kidney failure, unspecified; K92.2 Gastrointestinal hemorrhage, unspecified; D50.0 Iron deficiency anemia secondary to blood loss (chronic); D46.9 Myelodysplastic syndrome, unspecified; E11.22 Type 2 diabetes mellitus with diabetic chronic kidney disease; E78.00 Pure hypercholesterolemia, unspecified; E83.42 Hypomagnesemia; I27.20 Pulmonary hypertension, unspecified; E87.6 Hypokalemia; G47.30 Sleep apnea, unspecified; I25.10 Atherosclerotic heart disease of native coronary artery without angina pectoris; I48.2 Chronic atrial fibrillation; K21.9 Gastro-esophageal reflux disease without esophagitis; K44.9 Diaphragmatic hernia without obstruction or gangrene; K74.60 Unspecified cirrhosis of liver; N18.9 Chronic kidney disease, unspecified; N40.0 Benign prostatic hyperplasia without lower urinary tract symptoms; F32.9 Major depressive disorder, single episode, unspecified; I95.9 Hypotension, unspecified; Z66 Do not resuscitate; Z90.49 Acquired absence of other specified parts of digestive tract; Z98.61 Coronary angioplasty status; Z79.01 Long term (current) use of anticoagulants; Z79.899 Other long term (current) drug therapy
CPT/HCPCS: 36415; 36600; 71045; 78278; 80053; 80162; 81001; 82140; 82272; 82330; 82570; 82803; 82948; 83605; 83690; 83735; 83880; 83935; 84100; 84132; 84145; 84300; 84484; 85018; 85025; 85610; 85730; 86885; 86900; 86901; 86920; 87040; 87070; 87077; 87186; 92616; 93005; 97116; 97161; 97530; 99152; 99291; A9560; C9113; G0378; J0456; J0696; J1160; J1642; J1720; J1815; J1940; J2250; J2543; J2765; J3010; J3430; J3480; J7030; P9016; P9035; P9047; P9059; Q0163